=== PATIENT | male | born 1940 | race African-American/Black ===

== ENCOUNTER 2017-03-03 17:47 | Inpatient (IN) | payer MEDICARE, OTHER ==
[~2017-03-03] VITALS: Ht 175.3 cm; Wt 77.1 kg
[~2017-03-03 17:47] MED LIST: AMBIEN10 MG PO; ASPIRIN81 MG ORAL; COREG CR20 MG *; DIGOXIN250 MCG PO; DOCUSATE SODIU100 MG PO; DOXYCYCLINE MO100 MG ORAL; FLONASE1 SPRAYS NASAL; LISINOPRIL20 MG PO; MAG-OX 400400 MG ORAL; MEXITIL150 MG GT; NEXIUM40 MG PO; PACERONE200 MG ORAL; POTASSIUM IV; PROPAFENONE HC225 M1 PO; WARFARIN SODIUM3 MG PO; XANAX0.25 MG ORAL
[2017-03-03] MEDS ORDERED: BUMETANIDE0.5 MG ORAL (18:13)
[2017-03-03] MEDS ORDERED: ATORVASTATIN CA10 MG ORAL (18:13)
[2017-03-03 18:19] VITALS: BP 104/77
[2017-03-03 18:36] LABS: BASOPHILS % (AUTO) 1.5 % (0.0-2.0); EOSINOPHILS % (AUTO) 0.7 % (0.0-3.0); LYMPHOCYTES % (AUTO) 18.2 % (20.0-45.0); MEAN CORPUSCULAR HGB CONC 34.2 G/DL (32.0-36.0); MEAN CORPUSCULAR VOLUME 102 FL (80-99); MONOCYTES % (AUTO) 8.4 % (1.0-10.0); NEUTROPHILS % (AUTO) 71.2 % (45.0-75.0); PLATELET COUNT 122 K/UL (150-450); RED BLOOD COUNT 3.79 M/UL (4.70-6.10); RED CELL DISTRIBUTION WIDTH 12.5 % (11.6-14.8); WHITE BLOOD COUNT 4.2 K/UL (4.8-10.8)
[2017-03-03 19:08] LABS: ALANINE AMINOTRANSFERASE 18 U/L (3-41); ALBUMIN/GLOBULIN RATIO 1.2 (1.0-2.7); ANION GAP 15 (5-15); ASPARTATE AMINO TRANSFERASE 25 U/L (5-40); CALCIUM 9.6 mg/dL (8.6-10.2); CARBON DIOXIDE 23 mEQ/L (20-30); CHLORIDE 99 mEQ/L (98-107); CREATININE 1.6 mg/dL (0.7-1.2); HEMOLYSIS 63; SODIUM 137 mEQ/L (135-145); TOTAL PROTEIN 6.4 g/dL (6.6-8.7); TROPONIN I < 0.30 ng/mL (<=0.30)
--- NOTE | 2017-03-03 19:08 | Emergency Room Report ---
History of Present Illness General Chief Complaint: General Complaint Source: Patient, Medical Record, EMS Present Illness HPI 76YOM BIBEMS for "not feeling well all weekend." Denies fever/chills, cough. States cant catch breath. On 2L O2 at home. EMS states Atrial fib with RVR to 160 on scene Patient not sure if known Atrial Fib but on Coreg and AC. EMR states Atrial fib in 2012 here. Denies abd pain, nausea/vomiting Allergies: Coded Allergies: DIGOXIN (Unverified Allergy, Intermediate, KIDNEY DAMAGE, 09/14/14) CODEINE (Verified Allergy, Unknown, ITCHING, 05/15/12) Patient History Past Medical History: AFib Past Surgical History: pacemaker Pertinent Family History: unable to obtain Social History: Denies: smoking, alcohol use, drug use Immunizations: UTD Reviewed Nursing Documentation: PMH: Agreed, PSxH: Agreed Nursing Documentation-PMH Past Medical History: No History, Except For Hx Cardiac Problems: Yes - SC, ARRYTHMIA Hx Hypertension: Yes Hx Pacemaker: Yes - RT Hx Asthma: No Hx COPD: No Hx Diabetes: No Hx Cancer: No Hx Gastrointestinal Problems: Yes - HERNIA Hx Dialysis: No - RENAL INSUFFIENCY Hx Neurological Problems: No Hx Cerebrovascular Accident: Yes - LEFT SIDE Hx Seizures: No Review of Systems All Other Systems: negative except mentioned in HPI Physical Exam Vital Signs Date Time Temp Pulse Resp B/P (MAP) Pulse Ox O2 Delivery O2 Flow Rate FiO2 03/03/17 17:40 142 20 104/77 96 Room Air 03/03/17 18:19 98.7 2.0 Sp02 EP Interpretation: reviewed, normal General Appearance: normal inspection, well appearing, no apparent distress, alert, GCS 15, non-toxic, cachetic, thin Head: normocephalic, atraumatic Eyes: bilateral eye PERRL, bilateral eye EOMI ENT: normal ENT inspection, hearing grossly normal, normal voice Neck: normal inspection, full range of motion, supple, no bony tend Respiratory: normal inspection, lungs clear, normal breath sounds, no respiratory distress, no retraction, no wheezing Cardiovascular #1: no edema, tachycardia, irregularly irregular Gastrointestinal: normal inspection, normal bowel sounds, non tender, soft, no guarding, no hernia Genitourinary: no CVA tenderness Musculoskeletal: normal inspection, back normal, normal range of motion, Ashlee' s Sign negative Neurologic: normal inspection, alert, oriented x3, responsive, logging specialist III-XII nml as tested, motor strength/tone normal, speech normal Psychiatric: normal inspection, judgement/insight normal, mood/affect normal Skin: normal inspection, normal color, no rash Lymphatic: normal inspection Medical Decision Making Medicare Attestation I Radha Fleming MD hereby attest that the medical record entry for date of service, 03/03/17 accurately reflects signatures/notations that I made in my capacity as MD when I treated/diagnosed the above listed Medicare beneficiary. I attest that this information is true, accurate and complete to the best of my knowledge. I understand that any falsification, omission, or concealment of material fact may subject me to administrative, civil, or criminal liability. This patient warrants hospital admission for extreme of age and has a condition that cannot be treated as outpatient. Diagnostic Impression: Primary Impression: SOB (shortness of breath) Additional Impressions: Atrial fibrillation Qualified Codes: I48.2 - Chronic atrial fibrillation JENNIFER (acute kidney injury) ER Course SOB Known atrial fib Here HR 120. No ED intervention. BP stable. O2 sat 100% H&H stable. No leuks. Troponin 0. Mild JENNIFER. No known CKD. Gentle hydration given in ED On AC already so ASA not given Admitted for rule out ACS tele bed at 839pm to Dr Melgar Of note, registration acknowledged admission request at 630pm. EKG Diagnostic Results Rate: tachycardiac Rhythm: other - Afib ST Segments: no acute changes ASA given to the pt in ED: No Rhythm Strip Diag. Results EP Interpretation: yes Rate: 123 Rhythm: NSR, other - Multiple PVCs Chest X-Ray Diagnostic Results Chest X-Ray Diagnostic Results : Chest X-Ray Ordered: Yes # of Views/Limited/Complete: 1 View Indication: Shortness of Breath EP Interpretation: Yes Interpretation: no consolidation, no effusion, no pneumothorax, other - Cardiomegaly, pacemaker Interpreting ER Provider: Dr Radha Fleming MD Last Vital Signs Date Time Temp Pulse Resp B/P (MAP) Pulse Ox O2 Delivery O2 Flow Rate FiO2 03/03/17 18:19 98.7 135 20 104/77 96 Nasal Cannula 2.0 Status: improved Disposition: ADMITTED INPATIENT Condition: Serious RADHA FLEMING M.D. Mar 03, 2017 19:08
[2017-03-03 19:15] VITALS: BP_SYST 90; BP_SYST 95; BP_DIAS 59; BP_DIAS 69
[2017-03-03 19:18] LABS: CKMB 3.1 ng/mL (< 6.7)
[2017-03-03 19:28] LABS: BILIRUBIN,DIRECT 0.3 mg/dL (0.1-0.3)
[2017-03-03 20:15] VITALS: BP 91/64
[2017-03-03 21:15] VITALS: BP 102/74
[2017-03-03] MEDS ORDERED: Ketorolac 30mg Inj IV PRN (21:30)
[2017-03-03] MEDS ORDERED: Enalaprilat 2.5mg/2ml Inj IV PRN (21:30)
[2017-03-03] MEDS ORDERED: DuoNeb 0.5-3(2.5)mg/3ml neb HHN PRN (21:30)
[2017-03-03] MEDS ORDERED: Miralax 17gm pkt ORAL PRN (21:30)
[2017-03-03] MEDS ORDERED: Nitroglycerin Subl 0.4mg tab (Bottle Of 25) SL PRN (21:30)
[2017-03-04] VITALS: BP 102/63
[2017-03-04] MEDS: Diltiazem 25mg/5ml IV PRN ×2 (00:10→07:50)
[2017-03-04 04:00] VITALS: BP 135/90
[2017-03-04 06:46] LABS: BASOPHILS % (AUTO) 1.5 % (0.0-2.0); EOSINOPHILS % (AUTO) 0.4 % (0.0-3.0); MEAN CORPUSCULAR HEMOGLOBIN 34.6 PG (27.0-31.0); MEAN CORPUSCULAR HGB CONC 33.1 G/DL (32.0-36.0); MEAN CORPUSCULAR VOLUME 104 FL (80-99); MEAN PLATELET VOLUME 11.5 FL (6.5-10.1); MONOCYTES % (AUTO) 10.8 % (1.0-10.0); NEUTROPHILS % (AUTO) 67.4 % (45.0-75.0); PLATELET COUNT 119 K/UL (150-450); RED BLOOD COUNT 3.48 M/UL (4.70-6.10); RED CELL DISTRIBUTION WIDTH 12.7 % (11.6-14.8); WHITE BLOOD COUNT 4.3 K/UL (4.8-10.8)
[2017-03-04 06:57] LABS: INR 4.6 (0.9-1.1); PROTHROMBIN TIME 48.8 SEC (9.30-11.50)
[2017-03-04 06:59] LABS: CHOLESTEROL/HDL RATIO 2.8 (3.3-4.4); CRP QUANT 0.4 mg/dL (< 0.5)
[2017-03-04 07:03] LABS: THYROID STIMULATING HORMONE 0.317 uIU/mL (0.300-4.500)
[2017-03-04 07:49] LABS: TROPONIN I < 0.30 ng/mL (<=0.30)
[2017-03-04 08:14] VITALS: BP 116/70
[2017-03-04] MEDS ORDERED: Heparin 5000 units/ml inj SUBQ SCH (09:00)
[2017-03-04] MEDS: Aspirin Baby 81mg ORAL SCH (09:33)
[2017-03-04] MEDS: Amiodarone 200mg tab ORAL SCH ×2 (09:33→17:36)
[2017-03-04] MEDS: ALPRAZolam 0.25mg tab ORAL SCH (09:34)
--- NOTE | 2017-03-04 10:18 | Cardiology Progress Note ---
Assessment/Plan Assessment/Plan [id number] acute on chronic chf afib paroxysmal with hs of ablation tachy sever mr abdiaziz priro mitraclips pulm htn TR hyperkalemia unalbe to take acei / arb / aldactone dig intolerance s/p icd need hr control resume coreg / mexiletine (unusual combination but followed by ep) dc ivf diuretics no acei / no arb panic attack may have been onset of afib rvr his afib is peristent may need ep eval not sure why he cannot recieve amiod instead of mexiletine Objective Last 24 Hour Vital Signs Date Time Temp Pulse Resp B/P (MAP) Pulse Ox O2 Delivery O2 Flow Rate FiO2 03/04/17 08:14 97.1 122 20 116/70 99 Nasal Cannula 2.0 03/04/17 07:50 130 116/70 03/04/17 04:00 97.7 75 21 135/90 96 Nasal Cannula 2.0 03/04/17 04:00 105 03/04/17 00:10 130 102/63 03/04/17 00:00 97.0 114 18 102/63 99 Nasal Cannula 2.0 03/03/17 23:19 122 03/03/17 22:13 98.7 120 18 102/74 99 Nasal Cannula 2.0 03/03/17 21:15 120 18 102/74 99 Nasal Cannula 2.0 03/03/17 20:15 129 20 91/64 99 Nasal Cannula 2.0 03/03/17 19:15 111 14 95/59 100 Nasal Cannula 2.0 03/03/17 19:15 112 16 90/69 100 Nasal Cannula 2.0 03/03/17 18:19 98.7 135 20 104/77 96 Nasal Cannula 2.0 03/03/17 17:40 142 20 104/77 96 Room Air Laboratory Tests Test 03/03/17 18:10 03/04/17 06:05 White Blood Count 4.2 K/UL (4.8-10.8) L 4.3 K/UL (4.8-10.8) L Red Blood Count 3.79 M/UL (4.70-6.10) L 3.48 M/UL (4.70-6.10) L Hemoglobin 13.3 G/DL (14.2-18.0) L 12.0 G/DL (14.2-18.0) L Hematocrit 38.7 % (42.0-52.0) L 36.3 % (42.0-52.0) L Mean Corpuscular Volume 102 FL (80-99) H 104 FL (80-99) H Mean Corpuscular Hemoglobin 35.0 PG (27.0-31.0) H 34.6 PG (27.0-31.0) H Mean Corpuscular Hemoglobin Concent 34.2 G/DL (32.0-36.0) 33.1 G/DL (32.0-36.0) Red Cell Distribution Width 12.5 % (11.6-14.8) 12.7 % (11.6-14.8) Platelet Count 122 K/UL (150-450) L 119 K/UL (150-450) L Mean Platelet Volume 11.0 FL (6.5-10.1) H 11.5 FL (6.5-10.1) H Neutrophils (%) (Auto) 71.2 % (45.0-75.0) 67.4 % (45.0-75.0) Lymphocytes (%) (Auto) 18.2 % (20.0-45.0) L 20.0 % (20.0-45.0) Monocytes (%) (Auto) 8.4 % (1.0-10.0) 10.8 % (1.0-10.0) H Eosinophils (%) (Auto) 0.7 % (0.0-3.0) 0.4 % (0.0-3.0) Basophils (%) (Auto) 1.5 % (0.0-2.0) 1.5 % (0.0-2.0) Sodium Level 137 mEQ/L (135-145) Potassium Level 4.0 mEQ/L (3.4-4.9) Chloride Level 99 mEQ/L (98-107) Carbon Dioxide Level 23 mEQ/L (20-30) Anion Gap 15 (5-15) Blood Urea Nitrogen 20 mg/dL (7-23) Creatinine 1.6 mg/dL (0.7-1.2) H Estimat Glomerular Filtration Rate mL/min (>60) Glucose Level 108 mg/dL (74-106) H Calcium Level 9.6 mg/dL (8.6-10.2) Total Bilirubin 1.6 mg/dL (0.0-1.2) H Direct Bilirubin 0.3 mg/dL (0.1-0.3) Aspartate Amino Transf (AST/SGOT) 25 U/L (5-40) Alanine Aminotransferase (ALT/SGPT) 18 U/L (3-41) Alkaline Phosphatase 85 U/L (40-129) Total Creatine Kinase 125 U/L (38-174) Creatine Kinase MB 3.1 ng/mL (< 6.7) Creatine Kinase MB Relative Index 2.4 Troponin I < 0.30 ng/mL (<=0.30) < 0.30 ng/mL (<=0.30) Total Protein 6.4 g/dL (6.6-8.7) L Albumin 3.6 g/dL (3.5-5.2) Globulin 2.8 g/dL Albumin/Globulin Ratio 1.2 (1.0-2.7) Prothrombin Time 48.8 SEC (9.30-11.50) H Prothromb Time International Ratio 4.6 (0.9-1.1) H Activated Partial Thromboplast Time 39 SEC (23-33) H Magnesium Level 1.4 mg/dL (1.7-2.5) L C-Reactive Protein, Quantitative 0.4 mg/dL (< 0.5) Triglycerides Level 76 mg/dL (< 150) Cholesterol Level 119 mg/dL (< 200) LDL Cholesterol 61 mg/dL (60-99) HDL Cholesterol 43 mg/dL (> 60) Cholesterol/HDL Ratio 2.8 (3.3-4.4) L Thyroid Stimulating Hormone (TSH) 0.317 uIU/mL (0.300-4.500) MELANIE RIVAS Mar 04, 2017 10:18
[2017-03-04 11:36] VITALS: BP 98/69
--- NOTE | 2017-03-04 11:36 | Diagnostic Imaging Report ---
Indication: Dyspnea Comparison: 04/09/2007 A single view chest radiograph was obtained. Findings: No definite infiltrate or pulmonary vascular congestion identified. There is a pacemaker on the right. The heart is enlarged. The aorta is mildly enlarged consistent with atherosclerotic vascular disease. The bones are osteopenic. Impression: No acute disease
[2017-03-04] MEDS ORDERED: Bumetanide 2.5mg/10ml Inj IVP ONE (12:00)
--- NOTE | 2017-03-04 13:27 | Cardiology Report ---
APPROVED REPORT EXAM: Two-dimensional and M-mode echocardiogram with Doppler and color Doppler. INDICATION LV function M-Mode DIMENSIONS IVSd0.6 (0.7-1.1cm)Left Atrium (MM)4.3 (1.6-4.0cm) LVDd6.9 (3.5-5.6cm)Aortic Root4.2 (2.0-3.7cm) PWd1.4 (0.7-1.1cm)Aortic Cusp Exc.2.1 (1.5-2.0cm) LVDs6.4 (2.5-4.0cm) PWs1.3 cm Left ventricular enlargement. Global left ventricular hypokinesis. Apical akinesis and septal dyskinesis with septal thinning. Increased apical echoes noted on some views Left ventricular ejection fraction estimated to be 10-15 %. No evidence of left ventricular hypertrophy. Anterior Echo-free space, may be due to pericardial fat or effusion. Moderate bi-atrial enlargement. Right ventricular chamber size is within normal limits. Focal aortic valve sclerosis with adequate cusp excursion. Thickened mitral valve leaflets with normal excursion. Mitral annulus and aortic root calcification. Normal pulmonic valve structure. Normal tricuspid valve structure. IVC dilated at 3.0 cm without physiologic collapse suggestive of RA pressure at least 20 mmHg. Pacemaker wire present in the right side chambers. A color flow and spectral Doppler study was performed and revealed: Moderate aortic regurgitation. Moderate to severe mitral regurgitation. Can not determine left ventricular diastolic function by mitral diastolic velocities due to atrial fibrillation. Moderate to severe tricuspid regurgitation. Tricuspid systolic velocities suggests peak right ventricular systolic pressure of 69 mmHg, consistent with severe pulmonary hypertension. Pulmonic regurgitation present.
--- NOTE | 2017-03-04 14:46 | History and Physical ---
History of Present Illness General Date patient seen: Mar 04, 2017 Reason for Hospitalization: General Complaint Present Illness HPI 76 year old male with hx of endstage heart disease, pace maker, on Home O2 brought in by paramedics with CC of increasing Dyspnea for one week that became unbearable. Pt was diagnosed to have pulmonary edema and admitted to telemetry for further evaluation. Allergies: Coded Allergies: DIGOXIN (Unverified Allergy, Intermediate, KIDNEY DAMAGE, 09/14/14) CODEINE (Verified Allergy, Unknown, ITCHING, 05/15/12) Medication History Scheduled Alprazolam* (Xanax*), 0.25 MG ORAL DAILY, (Reported) Amiodarone Hcl* (Pacerone*), 200 MG ORAL BID, (Reported) Aspirin* (Aspirin*), 81 MG ORAL DAILY, (Reported) Atorvastatin Calcium* (Lipitor*), Unknown Dose ORAL BEDTIME, (Reported) Bumetanide* (Bumetanide*), Unknown Dose ORAL DAILY, (Reported) Carvedilol (Coreg Cr), 20 MG * DAILY, (Reported) Doxycycline Monohydrate* (Doxycycline Monohydrate*), 100 MG ORAL Q12H Esomeprazole Magnesium (Nexium), 40 MG PO DAILY, (Reported) Fluticasone Propionate (Fluticasone Propionate), 1 SPRAY NASAL DAILY, (Reported) Magnesium Oxide (Magnesium Oxide), 400 MG ORAL BID, (Reported) Mexiletine HCl (Mexiletine HCl), 150 MG GT TID, (Reported) Propafenone Hcl (Propafenone Hcl), 225 MG PO BID, (Reported) Zolpidem Tartrate* (Ambien*), 10 MG PO HS, (Reported) Miscellaneous Medications Warfarin Sod* (Warfarin Sod*), 3 MG PO, (Reported) Patient History Healthcare decision maker Resuscitation status Full Code Advanced Directive on File Past Medical/Surgical History Past Medical/Surgical History: (1) Pacemaker (2) Atrial fibrillation Review of Systems All Other Systems: negative except mentioned in HPI Physical Exam Lines, tubes and drains: peripheral HEENT: normocephalic, atraumatic Respiratory/Chest: rhonchi - left, rhonchi - right Cardiovascular/Chest: tachycardia Abdomen: normal bowel sounds, non tender, soft Extremities: normal range of motion, non-tender, normal capillary refill Skin Exam: normal pigmentation Last 24 Hour Vital Signs Date Time Temp Pulse Resp B/P (MAP) Pulse Ox O2 Delivery O2 Flow Rate FiO2 03/04/17 12:00 97 03/04/17 11:36 96.6 84 20 98/69 95 Room Air 03/04/17 08:14 97.1 122 20 116/70 99 Nasal Cannula 2.0 03/04/17 08:11 96 Nasal Cannula 2.0 28 03/04/17 08:11 Nasal Cannula 2.0 03/04/17 08:00 125 03/04/17 07:50 130 116/70 03/04/17 04:00 97.7 75 21 135/90 96 Nasal Cannula 2.0 03/04/17 04:00 105 03/04/17 00:10 130 102/63 03/04/17 00:00 97.0 114 18 102/63 99 Nasal Cannula 2.0 03/03/17 23:19 122 03/03/17 22:13 98.7 120 18 102/74 99 Nasal Cannula 2.0 03/03/17 21:15 120 18 102/74 99 Nasal Cannula 2.0 03/03/17 20:15 129 20 91/64 99 Nasal Cannula 2.0 03/03/17 19:15 111 14 95/59 100 Nasal Cannula 2.0 03/03/17 19:15 112 16 90/69 100 Nasal Cannula 2.0 03/03/17 18:19 98.7 135 20 104/77 96 Nasal Cannula 2.0 03/03/17 17:40 142 20 104/77 96 Room Air Intake and Output 03/04/17 03/05/17 19:00 07:00 Intake Total 120 ml Balance 120 ml Intake Oral 120 ml Laboratory Tests Test 03/03/17 18:10 03/04/17 06:05 White Blood Count 4.2 K/UL (4.8-10.8) L 4.3 K/UL (4.8-10.8) L Red Blood Count 3.79 M/UL (4.70-6.10) L 3.48 M/UL (4.70-6.10) L Hemoglobin 13.3 G/DL (14.2-18.0) L 12.0 G/DL (14.2-18.0) L Hematocrit 38.7 % (42.0-52.0) L 36.3 % (42.0-52.0) L Mean Corpuscular Volume 102 FL (80-99) H 104 FL (80-99) H Mean Corpuscular Hemoglobin 35.0 PG (27.0-31.0) H 34.6 PG (27.0-31.0) H Mean Corpuscular Hemoglobin Concent 34.2 G/DL (32.0-36.0) 33.1 G/DL (32.0-36.0) Red Cell Distribution Width 12.5 % (11.6-14.8) 12.7 % (11.6-14.8) Platelet Count 122 K/UL (150-450) L 119 K/UL (150-450) L Mean Platelet Volume 11.0 FL (6.5-10.1) H 11.5 FL (6.5-10.1) H Neutrophils (%) (Auto) 71.2 % (45.0-75.0) 67.4 % (45.0-75.0) Lymphocytes (%) (Auto) 18.2 % (20.0-45.0) L 20.0 % (20.0-45.0) Monocytes (%) (Auto) 8.4 % (1.0-10.0) 10.8 % (1.0-10.0) H Eosinophils (%) (Auto) 0.7 % (0.0-3.0) 0.4 % (0.0-3.0) Basophils (%) (Auto) 1.5 % (0.0-2.0) 1.5 % (0.0-2.0) Sodium Level 137 mEQ/L (135-145) Potassium Level 4.0 mEQ/L (3.4-4.9) Chloride Level 99 mEQ/L (98-107) Carbon Dioxide Level 23 mEQ/L (20-30) Anion Gap 15 (5-15) Blood Urea Nitrogen 20 mg/dL (7-23) Creatinine 1.6 mg/dL (0.7-1.2) H Estimat Glomerular Filtration Rate mL/min (>60) Glucose Level 108 mg/dL (74-106) H Calcium Level 9.6 mg/dL (8.6-10.2) Total Bilirubin 1.6 mg/dL (0.0-1.2) H Direct Bilirubin 0.3 mg/dL (0.1-0.3) Aspartate Amino Transf (AST/SGOT) 25 U/L (5-40) Alanine Aminotransferase (ALT/SGPT) 18 U/L (3-41) Alkaline Phosphatase 85 U/L (40-129) Total Creatine Kinase 125 U/L (38-174) Creatine Kinase MB 3.1 ng/mL (< 6.7) Creatine Kinase MB Relative Index 2.4 Troponin I < 0.30 ng/mL (<=0.30) < 0.30 ng/mL (<=0.30) Total Protein 6.4 g/dL (6.6-8.7) L Albumin 3.6 g/dL (3.5-5.2) Globulin 2.8 g/dL Albumin/Globulin Ratio 1.2 (1.0-2.7) Prothrombin Time 48.8 SEC (9.30-11.50) H Prothromb Time International Ratio 4.6 (0.9-1.1) H Activated Partial Thromboplast Time 39 SEC (23-33) H Magnesium Level 1.4 mg/dL (1.7-2.5) L C-Reactive Protein, Quantitative 0.4 mg/dL (< 0.5) Triglycerides Level 76 mg/dL (< 150) Cholesterol Level 119 mg/dL (< 200) LDL Cholesterol 61 mg/dL (60-99) HDL Cholesterol 43 mg/dL (> 60) Cholesterol/HDL Ratio 2.8 (3.3-4.4) L Thyroid Stimulating Hormone (TSH) 0.317 uIU/mL (0.300-4.500) Height (Feet): 5 Height (Inches): 9.00 Weight (Pounds): 141 Medications Current Medications Medications (Trade) Dose Ordered Sig/Thong Route PRN Reason Start Time Stop Time Status Last Admin Dose Admin Acetaminophen (Tylenol) 650 mg Q4H PRN ORAL FEVER 03/03/17 21:30 04/02/17 21:29 Alprazolam (Xanax) 0.25 mg DAILY ORAL 03/04/17 09:00 03/11/17 08:59 03/04/17 09:34 Amiodarone HCl (Cordarone) 200 mg BID ORAL 03/04/17 09:00 04/03/17 08:59 03/04/17 09:33 Aspirin (ASA) 162 mg DAILY ORAL 03/04/17 09:00 04/03/17 08:59 03/04/17 09:33 Atorvastatin Calcium (Lipitor) 20 mg BEDTIME ORAL 03/04/17 21:00 04/03/17 20:59 Diltiazem HCl (Cardizem) 10 mg Q1H PRN IV heart rate more than 120 03/03/17 21:30 04/02/17 21:29 03/04/17 07:50 Nitroglycerin (Ntg) 0.4 mg Q5M PRN SL Prn Chest Pain 03/03/17 21:30 04/02/17 21:29 Ondansetron HCl (Zofran) 4 mg Q6H PRN IVP Nausea & Vomiting 03/03/17 21:30 04/02/17 21:29 Polyethylene Glycol (Miralax) 17 gm DAILYPRN PRN ORAL Constipation 03/03/17 21:30 04/02/17 21:29 Temazepam (Restoril) 15 mg HSPRN PRN ORAL Insomnia 03/03/17 21:30 03/10/17 21:29 03/04/17 02:24 Warfarin Sodium (Coumadin per pharmacy) 1 ea DAILY PRN MISC PER RX PROTOCOL 03/03/17 22:15 04/02/17 22:14 Assessment/Plan Problem List: (1) Acute respiratory failure ICD Codes: J96.00 - Acute respiratory failure, unspecified whether with hypoxia or hypercapnia SNOMED: 53745109 (2) Pulmonary edema ICD Codes: J81.1 - Chronic pulmonary edema SNOMED: 34065578 (3) End-stage systolic heart failure ICD Codes: I50.20 - Unspecified systolic (congestive) heart failure SNOMED: 261871231 (4) Atrial fibrillation ICD Codes: I48.91 - Unspecified atrial fibrillation SNOMED: 22376023 Qualifiers: Qualified Codes: I48.2 - Chronic atrial fibrillation (5) Pacemaker ICD Codes: Z95.0 - Presence of cardiac pacemaker SNOMED: 238530707, 738103102 Assessment/Plan diuretics cardiology evaluation check intake and output serial ekg troponin echocardiogram optimize cardiac meds. IDALIA WALLS Mar 04, 2017 14:46
[2017-03-04 14:47] LABS: URIC ACID 7.3 mg/dL (3.0-7.5)
[2017-03-04 15:41] VITALS: BP 102/64
--- NOTE | 2017-03-04 15:48 | Diagnostic Imaging Report ---
Indication:Elevated Bun and Creatinine. Technique: Grayscale and duplex Doppler imaging of the kidneys performed. Comparison: None Findings: There is a cyst the left kidney midpole 3.2 cm in size. There is no hydronephrosis. Other smaller cysts are noted bilaterally. The IVC is unremarkable. The prostate is prominent having 47 cc volume. Thickening of the bladder wall demonstrated. There is no hydronephrosis seen. Renal echogenicity is within normal limits. Both kidneys measure slightly above 10 cm in length. Impression: Negative ultrasound of the kidneys. Few cysts noted. Prostate hypertrophy. Bladder wall thickening probably due to chronic bladder outlet impediment. Please correlate clinically.
[2017-03-04 20:00] VITALS: BP 96/77
[2017-03-04] MEDS: Haloperidol 5mg/ml Inj IM PRN (20:16)
[2017-03-04] MEDS: Atorvastatin 20mg tab ORAL SCH (21:05)
[2017-03-05] VITALS (7 sets, daily range): BP systolic 95–110; BP diastolic 63–76
[2017-03-05] MEDS: Haloperidol 5mg/ml Inj IM PRN ×2 (01:15→11:16)
[2017-03-05] MEDS: Amiodarone 200mg tab ORAL SCH ×2 (08:26→22:05)
[2017-03-05] MEDS: ALPRAZolam 0.25mg tab ORAL SCH (08:26)
[2017-03-05] MEDS: Aspirin Baby 81mg ORAL SCH (08:26)
[2017-03-05 08:40] LABS: ANION GAP 10 (5-15); CALCIUM 9.4 mg/dL (8.6-10.2); CARBON DIOXIDE 27 mEQ/L (20-30); CHLORIDE 101 mEQ/L (98-107); CREATININE 1.4 mg/dL (0.7-1.2); HEMOLYSIS 18; MAGNESIUM 1.5 mg/dL (1.7-2.5); POTASSIUM 3.8 mEQ/L (3.4-4.9); SODIUM 138 mEQ/L (135-145)
[2017-03-05 08:44] LABS: INR 3.7 (0.9-1.1); PROTHROMBIN TIME 39.1 SEC (9.30-11.50)
[2017-03-05 08:46] LABS: TROPONIN I 0.33 ng/mL (<=0.30)
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
[2017-03-05] MEDS ORDERED: Bumetanide 2.5mg/10ml Inj IVP ONE (10:00)
[2017-03-05] MEDS ORDERED: DuoNeb 0.5-3(2.5)mg/3ml neb HHN PRN (12:00)
--- NOTE | 2017-03-05 12:44 | Pulmonology Progress Note ---
Assessment/Plan Problems: (1) Acute respiratory failure (2) Pulmonary edema (3) End-stage systolic heart failure (4) Atrial fibrillation (5) EF 10% (6) Severe protein-calorie malnutrition Assessment/Plan still tachycardic psych evaluation for anxiety optimize cardiac meds Subjective ROS Limited/Unobtainable: No Interval Events: had panic attack Allergies: Coded Allergies: DIGOXIN (Unverified Allergy, Intermediate, KIDNEY DAMAGE, 09/14/14) CODEINE (Verified Allergy, Unknown, ITCHING, 05/15/12) Objective Last 24 Hour Vital Signs Date Time Temp Pulse Resp B/P (MAP) Pulse Ox O2 Delivery O2 Flow Rate FiO2 03/05/17 12:27 62 22 97 Nasal Cannula 3.0 32 03/05/17 12:23 98 22 Nasal Cannula 3.0 32 03/05/17 10:44 Nasal Cannula 2.0 03/05/17 10:43 99 Nasal Cannula 2.0 03/05/17 08:17 97.0 120 20 100/63 95 Nasal Cannula 2.0 03/05/17 08:00 91 03/05/17 04:00 96.9 65 20 100/68 97 Nasal Cannula 3.0 03/05/17 04:00 103 03/05/17 00:00 99 03/05/17 00:00 97.0 61 20 95/76 97 Nasal Cannula 3.0 03/04/17 20:00 102 03/04/17 20:00 96.9 60 22 96/77 100 Nasal Cannula 3.0 03/04/17 19:30 Nasal Cannula 2.0 28 03/04/17 19:30 97 Nasal Cannula 2.0 28 03/04/17 16:00 119 03/04/17 15:41 97.3 99 20 102/64 98 Nasal Cannula 2.0 Intake and Output 03/05/17 03/06/17 19:00 07:00 Intake Total 120 ml Output Total 200 ml Balance -80 ml Intake Oral 120 ml Output Urine Total 200 ml # Voids 1 General Appearance: cachetic HEENT: normocephalic, atraumatic Respiratory/Chest: chest wall non-tender, rhonchi Cardiovascular: normal peripheral pulses, normal rate Abdomen: normal bowel sounds, soft, non tender Extremities: no cyanosis, no clubbing Laboratory Tests 03/04/17 14:45: Urine Eosinophils None seen, Urine Random Sodium 61, Urine Potassium Timed 38 03/05/17 07:55: Prothrombin Time 39.1H, Prothromb Time International Ratio 3.7H, Sodium Level 138, Potassium Level 3.8, Chloride Level 101, Carbon Dioxide Level 27, Anion Gap 10, Blood Urea Nitrogen 19, Creatinine 1.4H, Estimat Glomerular Filtration Rate , Glucose Level 91, Calcium Level 9.4, Magnesium Level 1.5L, Troponin I 0.33*H, Pro-B-Type Natriuretic Peptide [id number] Current Medications Medications (Trade) Dose Ordered Sig/Thong Route PRN Reason Start Time Stop Time Status Last Admin Dose Admin Acetaminophen (Tylenol) 650 mg Q4H PRN ORAL FEVER 03/03/17 21:30 04/02/17 21:29 Albuterol/ Ipratropium (DuoNeb 0.5-3(2.5)mg/3ml) 3 ml Q4HRT PRN HHN Shortness of Breath 03/05/17 12:00 03/10/17 11:59 03/05/17 12:20 Alprazolam (Xanax) 0.25 mg DAILY ORAL 03/04/17 09:00 03/11/17 08:59 03/05/17 08:26 Amiodarone HCl (Cordarone) 400 mg EVERY 12 HOURS ORAL 03/05/17 21:00 04/04/17 20:59 Aspirin (ASA) 162 mg DAILY ORAL 03/04/17 09:00 04/03/17 08:59 03/05/17 08:26 Atorvastatin Calcium (Lipitor) 20 mg BEDTIME ORAL 03/04/17 21:00 04/03/17 20:59 03/04/17 21:05 Diltiazem HCl (Cardizem) 10 mg Q1H PRN IV heart rate more than 120 03/03/17 21:30 04/02/17 21:29 03/04/17 07:50 Haloperidol Lactate (Haldol) 5 mg Q4H PRN IM Agitation 03/04/17 19:45 04/03/17 19:44 03/05/17 11:16 Magnesium Sulfate 100 ml @ 100 mls/hr Q1H IVPB 03/05/17 10:00 03/05/17 12:59 03/05/17 11:43 Nitroglycerin (Ntg) 0.4 mg Q5M PRN SL Prn Chest Pain 03/03/17 21:30 04/02/17 21:29 Ondansetron HCl (Zofran) 4 mg Q6H PRN IVP Nausea & Vomiting 03/03/17 21:30 04/02/17 21:29 Polyethylene Glycol (Miralax) 17 gm DAILYPRN PRN ORAL Constipation 03/03/17 21:30 04/02/17 21:29 Temazepam (Restoril) 15 mg HSPRN PRN ORAL Insomnia 03/03/17 21:30 03/10/17 21:29 03/04/17 21:06 Warfarin Sodium (Coumadin per pharmacy) 1 ea DAILY PRN MISC PER RX PROTOCOL 03/03/17 22:15 04/02/17 22:14 IDALIA WALLS Mar 05, 2017 12:44
--- NOTE | 2017-03-05 19:32 | Cardiology Progress Note ---
Assessment/Plan Assessment/Plan 1. Paroxysmal episodes of atrial fibrillation now with rapid ventricular response. 2. Congestive heart failure, acute on chronic in nature. 3. Severe mitral regurgitation, status post two prior MitraClips with remnants of significant regurgitation. 4. Pulmonary hypertension. 5. Tricuspid regurgitation. 6. History of epicardial pacemaker implantation. 7. Prior history of atrial fibrillation, ablation by Dr. jaramillo 8. "panic attackes" ? chf and afib related d/w dr lugo yest hsitory reviwed pt endstage cm / chf we decided to dc mexiletine adn use amiod instead today converted back to sinus amiod load will be contienue bop is better will need icd interrogation need mroe diuretic for now labs ntoed Subjective Cardiovascular: Denies: chest pain, lightheadedness, palpitations Respiratory: Reports: shortness of breath, SOB with excertion, SOB at rest Gastrointestinal/Abdominal: Denies: abdominal pain Genitourinary: Denies: burning Subjective felt like panic Objective Last 24 Hour Vital Signs Date Time Temp Pulse Resp B/P (MAP) Pulse Ox O2 Delivery O2 Flow Rate FiO2 03/05/17 16:00 97.0 68 19 110/69 99 Simple Mask 2.0 03/05/17 16:00 119 03/05/17 12:27 62 22 97 Nasal Cannula 3.0 32 03/05/17 12:23 98 22 Nasal Cannula 3.0 32 03/05/17 12:00 119 03/05/17 12:00 96.9 120 22 108/68 98 Nasal Cannula 2.0 03/05/17 10:44 Nasal Cannula 2.0 03/05/17 10:43 99 Nasal Cannula 2.0 03/05/17 08:17 97.0 120 20 100/63 95 Nasal Cannula 2.0 03/05/17 08:00 91 03/05/17 04:00 96.9 65 20 100/68 97 Nasal Cannula 3.0 03/05/17 04:00 103 03/05/17 00:00 99 03/05/17 00:00 97.0 61 20 95/76 97 Nasal Cannula 3.0 03/04/17 20:00 102 03/04/17 20:00 96.9 60 22 96/77 100 Nasal Cannula 3.0 03/04/17 19:30 Nasal Cannula 2.0 28 03/04/17 19:30 97 Nasal Cannula 2.0 28 General Appearance: mild distress Cardiovascular: normal rate - ectopies Respiratory/Chest: crackles/rales Abdomen: normal bowel sounds, non tender, soft Extremities: no swelling Intake and Output 03/05/17 03/06/17 19:00 07:00 Intake Total 440 ml Output Total 450 ml Balance -10 ml Intake Oral 240 ml IV Total 200 ml Output Urine Total 450 ml # Voids 2 # Bowel Movements 1 Laboratory Tests Test 03/05/17 07:55 Prothrombin Time 39.1 SEC (9.30-11.50) H Prothromb Time International Ratio 3.7 (0.9-1.1) H Sodium Level 138 mEQ/L (135-145) Potassium Level 3.8 mEQ/L (3.4-4.9) Chloride Level 101 mEQ/L (98-107) Carbon Dioxide Level 27 mEQ/L (20-30) Anion Gap 10 (5-15) Blood Urea Nitrogen 19 mg/dL (7-23) Creatinine 1.4 mg/dL (0.7-1.2) H Estimat Glomerular Filtration Rate mL/min (>60) Glucose Level 91 mg/dL (74-106) Calcium Level 9.4 mg/dL (8.6-10.2) Magnesium Level 1.5 mg/dL (1.7-2.5) L Troponin I 0.33 ng/mL (<=0.30) *H Pro-B-Type Natriuretic Peptide 19842 pg/mL (0-450) H MELANIE RIVAS Mar 05, 2017 19:32
[2017-03-05] MEDS: Bumetanide 2.5mg/10ml Inj IVP SCH (20:40)
[2017-03-05] MEDS: Atorvastatin 20mg tab ORAL SCH (22:04)
[2017-03-06] VITALS: BP 96/63
[2017-03-06] MEDS: Haloperidol 5mg/ml Inj IM PRN ×3 (02:30→14:46)
[2017-03-06 03:47] VITALS: BP 98/67
[2017-03-06 08:00] VITALS: BP 103/64
[2017-03-06 08:35] LABS: INR 3.7 (0.9-1.1); PROTHROMBIN TIME 38.9 SEC (9.30-11.50)
[2017-03-06] MEDS: Amiodarone 200mg tab ORAL SCH ×2 (08:50→20:48)
[2017-03-06] MEDS: ALPRAZolam 0.25mg tab ORAL SCH (08:50)
[2017-03-06] MEDS: Aspirin Baby 81mg ORAL SCH (08:52)
[2017-03-06] MEDS: Bumetanide 2.5mg/10ml Inj IVP SCH (09:00)
[2017-03-06 12:00] VITALS: BP 108/63
--- NOTE | 2017-03-06 12:47 | Pulmonology Progress Note ---
Assessment/Plan Problems: (1) Acute respiratory failure (2) Pulmonary edema (3) End-stage systolic heart failure (4) Atrial fibrillation (5) EF 10% (6) Severe protein-calorie malnutrition Assessment/Plan heart rate is lower, in and out of sinus had runs of vtach testerday psych evaluation for anxiety optimize cardiac meds, on amiodarone Subjective Interval Events: doens't know how he feels Allergies: Coded Allergies: DIGOXIN (Unverified Allergy, Intermediate, KIDNEY DAMAGE, 09/14/14) CODEINE (Verified Allergy, Unknown, ITCHING, 05/15/12) Objective Last 24 Hour Vital Signs Date Time Temp Pulse Resp B/P (MAP) Pulse Ox O2 Delivery O2 Flow Rate FiO2 03/06/17 12:00 97.3 97 17 108/63 99 Nasal Cannula 2.0 03/06/17 08:02 Nasal Cannula 2.0 28 03/06/17 08:02 98 Nasal Cannula 2.0 28 03/06/17 08:00 104 03/06/17 08:00 97.0 109 22 103/64 98 Nasal Cannula 3.0 03/06/17 04:00 99 03/06/17 03:47 97.8 68 20 98/67 97 Nasal Cannula 2.0 03/06/17 00:00 107 03/05/17 23:46 97.3 87 21 98/65 100 Nasal Cannula 2.0 03/05/17 21:36 96 Nasal Cannula 2.0 28 03/05/17 21:36 Nasal Cannula 2.0 28 03/05/17 19:55 98.8 62 19 103/76 98 Nasal Cannula 2.0 03/05/17 16:00 97.0 68 19 110/69 99 Simple Mask 2.0 03/05/17 16:00 119 General Appearance: WD/WN HEENT: normocephalic, atraumatic Respiratory/Chest: chest wall non-tender, lungs clear Cardiovascular: normal peripheral pulses, normal rate Abdomen: normal bowel sounds, soft, non tender Genitourinary: normal external genitalia Extremities: no clubbing Skin: no rash, no lesions Laboratory Tests 03/06/17 07:35: Prothrombin Time 38.9H, Prothromb Time International Ratio 3.7H Current Medications Medications (Trade) Dose Ordered Sig/Thong Route PRN Reason Start Time Stop Time Status Last Admin Dose Admin Acetaminophen (Tylenol) 650 mg Q4H PRN ORAL FEVER 03/03/17 21:30 04/02/17 21:29 Alprazolam (Xanax) 0.25 mg DAILY ORAL 03/04/17 09:00 03/11/17 08:59 03/06/17 08:50 Amiodarone HCl (Cordarone) 400 mg EVERY 12 HOURS ORAL 03/05/17 21:00 04/04/17 20:59 03/06/17 08:50 Aspirin (ASA) 162 mg DAILY ORAL 03/04/17 09:00 04/03/17 08:59 03/06/17 08:52 Atorvastatin Calcium (Lipitor) 20 mg BEDTIME ORAL 03/04/17 21:00 04/03/17 20:59 03/05/17 22:04 Bumetanide (Bumex) 1 mg BID IVP 03/05/17 20:00 04/04/17 19:59 03/05/17 20:40 Diltiazem HCl (Cardizem) 10 mg Q1H PRN IV heart rate more than 120 03/03/17 21:30 04/02/17 21:29 03/04/17 07:50 Haloperidol Lactate (Haldol) 5 mg Q4H PRN IM Agitation 03/04/17 19:45 04/03/17 19:44 03/06/17 09:21 Nitroglycerin (Ntg) 0.4 mg Q5M PRN SL Prn Chest Pain 03/03/17 21:30 04/02/17 21:29 Ondansetron HCl (Zofran) 4 mg Q6H PRN IVP Nausea & Vomiting 03/03/17 21:30 04/02/17 21:29 Polyethylene Glycol (Miralax) 17 gm DAILYPRN PRN ORAL Constipation 03/03/17 21:30 04/02/17 21:29 Temazepam (Restoril) 15 mg HSPRN PRN ORAL Insomnia 03/03/17 21:30 03/10/17 21:29 03/05/17 22:43 Warfarin Sodium (Coumadin per pharmacy) 1 ea DAILY PRN MISC PER RX PROTOCOL 03/03/17 22:15 04/02/17 22:14 IDALIA WALLS Mar 06, 2017 12:47
[2017-03-06 16:17] VITALS: BP 97/67
--- NOTE | 2017-03-06 17:16 | Consultation ---
History of Present Illness General Date patient seen: Mar 05, 2017 Chief Complaint: General Complaint Present Illness HPI 76 year old male with hx of anxiety endstage heart disease, pace maker, on Home O2 brought in by paramedics with CC of increasing Dyspnea for one week that became unbearable.the pt has episodes of panic attacks and at times gets agitated 'nothing works" the pt also endorses depressed mood anhedonia worthlessness. fatigue and insomnia Allergies: Coded Allergies: DIGOXIN (Unverified Allergy, Intermediate, KIDNEY DAMAGE, 09/14/14) CODEINE (Verified Allergy, Unknown, ITCHING, 05/15/12) Medication History Scheduled Alprazolam* (Xanax*), 0.25 MG ORAL DAILY, (Reported) Amiodarone Hcl* (Pacerone*), 200 MG ORAL BID, (Reported) Aspirin* (Aspirin*), 81 MG ORAL DAILY, (Reported) Atorvastatin Calcium* (Lipitor*), Unknown Dose ORAL BEDTIME, (Reported) Bumetanide* (Bumetanide*), Unknown Dose ORAL DAILY, (Reported) Carvedilol (Coreg Cr), 20 MG * DAILY, (Reported) Doxycycline Monohydrate* (Doxycycline Monohydrate*), 100 MG ORAL Q12H Esomeprazole Magnesium (Nexium), 40 MG PO DAILY, (Reported) Fluticasone Propionate (Fluticasone Propionate), 1 SPRAY NASAL DAILY, (Reported) Magnesium Oxide (Magnesium Oxide), 400 MG ORAL BID, (Reported) Mexiletine HCl (Mexiletine HCl), 150 MG GT TID, (Reported) Propafenone Hcl (Propafenone Hcl), 225 MG PO BID, (Reported) Zolpidem Tartrate* (Ambien*), 10 MG PO HS, (Reported) Miscellaneous Medications Warfarin Sod* (Warfarin Sod*), 3 MG PO, (Reported) Patient History History Provided By: Patient, Medical Record, PMD Healthcare decision maker Resuscitation status Full Code Advanced Directive on File Past Medical/Surgical History Past Medical/Surgical History: (1) Abnormal urogenital findings (2) Urethritis (3) Urethritis (4) Atrial fibrillation (5) SOB (shortness of breath) (6) JENNIFER (acute kidney injury) (7) Pacemaker (8) Acute respiratory failure (9) Pulmonary edema (10) End-stage systolic heart failure (11) Acute end-stage systolic heart failure (12) EF 10% (13) Severe protein-calorie malnutrition Review of Systems Constitutional: Reports: malaise, weakness Psychiatric: Reports: anxiety, depressed feelings, emotional problems Physical Exam General Appearance: alert, moderate distress Neurologic: alert, oriented x 3, responsive, depressed affect Last 24 Hour Vital Signs Date Time Temp Pulse Resp B/P (MAP) Pulse Ox O2 Delivery O2 Flow Rate FiO2 03/06/17 16:17 96.4 50 17 97/67 96 Nasal Cannula 3.0 03/06/17 12:00 87 03/06/17 12:00 97.3 97 17 108/63 99 Nasal Cannula 2.0 03/06/17 08:02 Nasal Cannula 2.0 28 03/06/17 08:02 98 Nasal Cannula 2.0 28 03/06/17 08:00 104 03/06/17 08:00 97.0 109 22 103/64 98 Nasal Cannula 3.0 03/06/17 04:00 99 03/06/17 03:47 97.8 68 20 98/67 97 Nasal Cannula 2.0 03/06/17 00:00 107 03/05/17 23:46 97.3 87 21 98/65 100 Nasal Cannula 2.0 03/05/17 21:36 96 Nasal Cannula 2.0 28 03/05/17 21:36 Nasal Cannula 2.0 28 03/05/17 19:55 98.8 62 19 103/76 98 Nasal Cannula 2.0 Intake and Output 03/06/17 03/07/17 19:00 07:00 Intake Total 650 ml Output Total 150 ml Balance 500 ml Intake Oral 650 ml Output Urine Total 150 ml # Voids 1 # Bowel Movements 1 Laboratory Tests Test 03/06/17 07:35 Prothrombin Time 38.9 SEC (9.30-11.50) H Prothromb Time International Ratio 3.7 (0.9-1.1) H Height (Feet): 5 Height (Inches): 9.00 Weight (Pounds): 169 Medications Current Medications Medications (Trade) Dose Ordered Sig/Thong Route PRN Reason Start Time Stop Time Status Last Admin Dose Admin Acetaminophen (Tylenol) 650 mg Q4H PRN ORAL FEVER 03/03/17 21:30 04/02/17 21:29 Albuterol/ Ipratropium (DuoNeb 0.5-3(2.5)mg/3ml) 3 ml Q4HRT PRN HHN Shortness of Breath 03/06/17 19:00 03/11/17 18:59 Alprazolam (Xanax) 0.25 mg DAILY ORAL 03/04/17 09:00 03/11/17 08:59 03/06/17 08:50 Amiodarone HCl (Cordarone) 400 mg EVERY 12 HOURS ORAL 03/05/17 21:00 04/04/17 20:59 03/06/17 08:50 Aspirin (ASA) 162 mg DAILY ORAL 03/04/17 09:00 04/03/17 08:59 03/06/17 08:52 Atorvastatin Calcium (Lipitor) 20 mg BEDTIME ORAL 03/04/17 21:00 04/03/17 20:59 03/05/17 22:04 Bumetanide (Bumex) 1 mg BID IVP 03/05/17 20:00 04/04/17 19:59 03/05/17 20:40 Diltiazem HCl (Cardizem) 10 mg Q1H PRN IV heart rate more than 120 03/03/17 21:30 04/02/17 21:29 03/04/17 07:50 Haloperidol Lactate (Haldol) 5 mg Q4H PRN IM Agitation 03/04/17 19:45 04/03/17 19:44 03/06/17 14:46 Nitroglycerin (Ntg) 0.4 mg Q5M PRN SL Prn Chest Pain 03/03/17 21:30 04/02/17 21:29 Ondansetron HCl (Zofran) 4 mg Q6H PRN IVP Nausea & Vomiting 03/03/17 21:30 04/02/17 21:29 Polyethylene Glycol (Miralax) 17 gm DAILYPRN PRN ORAL Constipation 03/03/17 21:30 04/02/17 21:29 Temazepam (Restoril) 15 mg HSPRN PRN ORAL Insomnia 03/03/17 21:30 03/10/17 21:29 03/05/17 22:43 Warfarin Sodium (Coumadin per pharmacy) 1 ea DAILY PRN MISC PER RX PROTOCOL 03/03/17 22:15 04/02/17 22:14 Assessment/Plan Status: stable Assessment/Plan mdd anxiety d/o lung edema -paxil 20mg po qhs Sania Estevez M.D. Mar 06, 2017 17:16
--- NOTE | 2017-03-06 17:55 | Cardiology Progress Note ---
Assessment/Plan Assessment/Plan 1. Paroxysmal episodes of atrial fibrillation now with rapid ventricular response. 2. Congestive heart failure, acute on chronic in nature. 3. Severe mitral regurgitation, status post two prior MitraClips with remnants of significant regurgitation. 4. Pulmonary hypertension. 5. Tricuspid regurgitation. 6. History of epicardial pacemaker implantation. 7. Prior history of atrial fibrillation, ablation by Dr. jaramillo 8. "panic attackes" ? chf and afib related d/w dr lugo 03/04 hsitory reviwed pt endstage cm / chf we decided to dc mexiletine adn use amiod instead converted back to sinus amiod load will be continued bp ios fair will need icd interrogation need mroe diuretic for now labs ntoed repeat mag level Subjective Cardiovascular: Reports: palpitations, Denies: chest pain, lightheadedness Respiratory: Reports: shortness of breath Gastrointestinal/Abdominal: Denies: abdominal pain Genitourinary: Reports: burning Subjective still sob adn panic sensation Objective Last 24 Hour Vital Signs Date Time Temp Pulse Resp B/P (MAP) Pulse Ox O2 Delivery O2 Flow Rate FiO2 03/06/17 16:17 96.4 50 17 97/67 96 Nasal Cannula 3.0 03/06/17 16:00 99 03/06/17 12:00 87 03/06/17 12:00 97.3 97 17 108/63 99 Nasal Cannula 2.0 03/06/17 08:02 Nasal Cannula 2.0 28 03/06/17 08:02 98 Nasal Cannula 2.0 28 03/06/17 08:00 104 03/06/17 08:00 97.0 109 22 103/64 98 Nasal Cannula 3.0 03/06/17 04:00 99 03/06/17 03:47 97.8 68 20 98/67 97 Nasal Cannula 2.0 03/06/17 00:00 107 03/05/17 23:46 97.3 87 21 98/65 100 Nasal Cannula 2.0 03/05/17 21:36 96 Nasal Cannula 2.0 28 03/05/17 21:36 Nasal Cannula 2.0 28 03/05/17 19:55 98.8 62 19 103/76 98 Nasal Cannula 2.0 General Appearance: no apparent distress Neck: supple Cardiovascular: normal rate, regular rhythm Respiratory/Chest: lungs clear Abdomen: normal bowel sounds, non tender, soft Extremities: no swelling Intake and Output 03/06/17 03/07/17 19:00 07:00 Intake Total 650 ml Output Total 150 ml Balance 500 ml Intake Oral 650 ml Output Urine Total 150 ml # Voids 1 # Bowel Movements 1 Laboratory Tests Test 03/06/17 07:35 Prothrombin Time 38.9 SEC (9.30-11.50) H Prothromb Time International Ratio 3.7 (0.9-1.1) H MELANIE RIVAS Mar 06, 2017 17:55
[2017-03-06] MEDS ORDERED: DuoNeb 0.5-3(2.5)mg/3ml neb HHN PRN (19:00)
[2017-03-06 20:00] VITALS: BP 109/61
[2017-03-06] MEDS: Atorvastatin 20mg tab ORAL SCH (20:44)
[2017-03-06] MEDS ORDERED: PARoxetine 20mg tab ORAL SCH (21:00)
[2017-03-07] VITALS: BP 96/63
[2017-03-07 04:00] VITALS: BP 110/72
[2017-03-07 07:29] LABS: BASOPHILS % (AUTO) 0.8 % (0.0-2.0); EOSINOPHILS % (AUTO) 0.9 % (0.0-3.0); LYMPHOCYTES % (AUTO) 14.3 % (20.0-45.0); MEAN CORPUSCULAR HEMOGLOBIN 34.7 PG (27.0-31.0); MEAN CORPUSCULAR HGB CONC 33.7 G/DL (32.0-36.0); MEAN CORPUSCULAR VOLUME 103 FL (80-99); MONOCYTES % (AUTO) 8.1 % (1.0-10.0); PLATELET COUNT 124 K/UL (150-450); RED BLOOD COUNT 3.76 M/UL (4.70-6.10); RED CELL DISTRIBUTION WIDTH 12.3 % (11.6-14.8); WHITE BLOOD COUNT 5.4 K/UL (4.8-10.8)
[2017-03-07 07:42] LABS: INR 2.7 (0.9-1.1); PROTHROMBIN TIME 28.6 SEC (9.30-11.50)
[2017-03-07 08:00] VITALS: BP 112/89
[2017-03-07 08:11] LABS: ALANINE AMINOTRANSFERASE 65 U/L (3-41); ALBUMIN/GLOBULIN RATIO 1.1 (1.0-2.7); ANION GAP 11 (5-15); ASPARTATE AMINO TRANSFERASE 57 U/L (5-40); CALCIUM 10.1 mg/dL (8.6-10.2); CARBON DIOXIDE 27 mEQ/L (20-30); CHLORIDE 101 mEQ/L (98-107); CREATININE 1.5 mg/dL (0.7-1.2); HEMOLYSIS 8; POTASSIUM 5.4 mEQ/L (3.4-4.9); SODIUM 139 mEQ/L (135-145); TOTAL PROTEIN 6.4 g/dL (6.6-8.7)
[2017-03-07 08:31] LABS: BILIRUBIN,DIRECT 0.8 mg/dL (0.1-0.3)
[2017-03-07] MEDS: Amiodarone 200mg tab ORAL SCH (08:50)
[2017-03-07] MEDS: ALPRAZolam 0.25mg tab ORAL SCH (08:51)
[2017-03-07] MEDS: Aspirin Baby 81mg ORAL SCH (08:54)
[2017-03-07] MEDS ORDERED: Citalopram Hydrobromide 10 MG TAB ORAL SCH (09:00)
--- NOTE | 2017-03-07 10:08 | Diagnostic Imaging Report ---
Indication: Dyspnea Comparison: 03/03/17 A single view chest radiograph was obtained. Findings: Cardiomegaly and interstitial edema suspected. There is a pacemaker on the right noted. Left hemidiaphragm is silhouetted out and not visualized. Bones are osteopenic. Impression: Mild CHF/interstitial edema suspected. Small left pleural effusion may be present.
[2017-03-07 12:00] VITALS: BP 120/77
--- NOTE | 2017-03-07 12:19 | Pulmonology Progress Note ---
Assessment/Plan Problems: (1) Acute respiratory failure (2) Pulmonary edema (3) End-stage systolic heart failure (4) Atrial fibrillation (5) EF 10% (6) Severe protein-calorie malnutrition Assessment/Plan still short of breath doens't want rehab heart rate is lower, in and out of sinus psych evaluation for anxiety optimize cardiac meds, on amiodarone dc home with hospice if he agrees. Subjective ROS Limited/Unobtainable: No Interval Events: still short of breath Allergies: Coded Allergies: DIGOXIN (Unverified Allergy, Intermediate, KIDNEY DAMAGE, 09/14/14) CODEINE (Verified Allergy, Unknown, ITCHING, 05/15/12) Objective Last 24 Hour Vital Signs Date Time Temp Pulse Resp B/P (MAP) Pulse Ox O2 Delivery O2 Flow Rate FiO2 03/07/17 08:00 97.2 88 20 112/89 96 Nasal Cannula 2.0 03/07/17 08:00 90 03/07/17 06:43 99 Nasal Cannula 2.0 03/07/17 06:43 Nasal Cannula 2.0 03/07/17 04:00 92 03/07/17 04:00 96.9 78 21 110/72 100 Nasal Cannula 3.0 03/07/17 00:00 90 03/07/17 00:00 97.3 88 20 96/63 98 Nasal Cannula 3.0 03/06/17 20:03 99 Nasal Cannula 2.0 28 03/06/17 20:03 Nasal Cannula 2.0 28 03/06/17 20:00 96.9 67 24 109/61 100 Room Air 03/06/17 20:00 103 03/06/17 16:17 96.4 50 17 97/67 96 Nasal Cannula 3.0 03/06/17 16:00 99 General Appearance: cachetic HEENT: normocephalic, atraumatic Respiratory/Chest: chest wall non-tender, lungs clear Cardiovascular: normal peripheral pulses, normal rate Abdomen: normal bowel sounds, soft, non tender, no organomegaly Extremities: no cyanosis, no clubbing Neurologic/Psychiatric: pan helper II-XII grossly normal Laboratory Tests 03/07/17 06:25: White Blood Count 5.4, Red Blood Count 3.76L, Hemoglobin 13.1L, Hematocrit 38.7L , Mean Corpuscular Volume 103H, Mean Corpuscular Hemoglobin 34.7H, Mean Corpuscular Hemoglobin Concent 33.7, Red Cell Distribution Width 12.3, Platelet Count 124L, Mean Platelet Volume 12.0H, Neutrophils (%) (Auto) 76.0H, Lymphocytes (%) (Auto) 14.3L, Monocytes (%) (Auto) 8.1, Eosinophils (%) (Auto) 0.9, Basophils (%) (Auto) 0.8, Prothrombin Time 28.6H, Prothromb Time International Ratio 2.7H, Sodium Level 139, Potassium Level 5.4H, Chloride Level 101, Carbon Dioxide Level 27, Anion Gap 11, Blood Urea Nitrogen 23, Creatinine 1.5H, Estimat Glomerular Filtration Rate , Glucose Level 94, Calcium Level 10.1, Magnesium Level 1.6L, Total Bilirubin 2.7H, Direct Bilirubin 0.8H, Aspartate Amino Transf (AST/SGOT) 57H, Alanine Aminotransferase (ALT/SGPT) 65H, Alkaline Phosphatase 102, Pro-B-Type Natriuretic Peptide [id number], Total Protein 6.4L, Albumin 3.4L, Globulin 3.0, Albumin/Globulin Ratio 1.1 Current Medications Medications (Trade) Dose Ordered Sig/Thong Route PRN Reason Start Time Stop Time Status Last Admin Dose Admin Acetaminophen (Tylenol) 650 mg Q4H PRN ORAL FEVER 03/03/17 21:30 04/02/17 21:29 Alprazolam (Xanax) 0.25 mg DAILY ORAL 03/04/17 09:00 03/11/17 08:59 03/07/17 08:51 Amiodarone HCl (Cordarone) 400 mg EVERY 12 HOURS ORAL 03/05/17 21:00 04/04/17 20:59 03/07/17 08:50 Aspirin (ASA) 162 mg DAILY ORAL 03/04/17 09:00 04/03/17 08:59 03/07/17 08:54 Atorvastatin Calcium (Lipitor) 20 mg BEDTIME ORAL 03/04/17 21:00 04/03/17 20:59 03/06/17 20:44 Diltiazem HCl (Cardizem) 10 mg Q1H PRN IV heart rate more than 120 03/03/17 21:30 04/02/17 21:29 03/04/17 07:50 Haloperidol Lactate (Haldol) 5 mg Q4H PRN IM Agitation 03/04/17 19:45 04/03/17 19:44 03/06/17 14:46 Nitroglycerin (Ntg) 0.4 mg Q5M PRN SL Prn Chest Pain 03/03/17 21:30 04/02/17 21:29 Ondansetron HCl (Zofran) 4 mg Q6H PRN IVP Nausea & Vomiting 03/03/17 21:30 04/02/17 21:29 Paroxetine HCl (Paxil) 20 mg BEDTIME ORAL 03/06/17 21:00 04/05/17 20:59 03/06/17 20:44 Polyethylene Glycol (Miralax) 17 gm DAILYPRN PRN ORAL Constipation 03/03/17 21:30 04/02/17 21:29 Temazepam (Restoril) 15 mg HSPRN PRN ORAL Insomnia 03/03/17 21:30 03/10/17 21:29 03/06/17 20:48 Warfarin Sodium (Coumadin per pharmacy) 1 ea DAILY PRN MISC PER RX PROTOCOL 03/03/17 22:15 04/02/17 22:14 IDALIA WALLS Mar 07, 2017 12:19
--- NOTE | 2017-03-07 14:24 | Geriatric Progress Note ---
Assessment/Plan Assessment/Plan Mdd, anxiety d/o -cont current meds -provided ro/st -explained to him that xanax is not a good medication in this situation -date of visit 03/06/17 Discussed with: patient Subjective Constitutional: Reports: malaise, weakness Respiratory: Reports: shortness of breath Mood/Memory: Reports: prior hx, anxiety, depressed feelings, emotional problems Psychiatric: Reports: see HPI Sleep: Reports: doesn't sleep well Geriatric Geriatric Last 24 Hour Vital Signs Date Time Temp Pulse Resp B/P (MAP) Pulse Ox O2 Delivery O2 Flow Rate FiO2 03/07/17 12:00 97.2 77 22 120/77 95 Nasal Cannula 3.0 03/07/17 12:00 105 03/07/17 08:00 97.2 88 20 112/89 96 Nasal Cannula 2.0 03/07/17 08:00 90 03/07/17 06:43 99 Nasal Cannula 2.0 03/07/17 06:43 Nasal Cannula 2.0 03/07/17 04:00 92 03/07/17 04:00 96.9 78 21 110/72 100 Nasal Cannula 3.0 03/07/17 00:00 90 03/07/17 00:00 97.3 88 20 96/63 98 Nasal Cannula 3.0 03/06/17 20:03 99 Nasal Cannula 2.0 28 03/06/17 20:03 Nasal Cannula 2.0 28 03/06/17 20:00 96.9 67 24 109/61 100 Room Air 03/06/17 20:00 103 03/06/17 16:17 96.4 50 17 97/67 96 Nasal Cannula 3.0 03/06/17 16:00 99 Laboratory Tests Test 03/07/17 06:25 White Blood Count 5.4 K/UL (4.8-10.8) Red Blood Count 3.76 M/UL (4.70-6.10) L Hemoglobin 13.1 G/DL (14.2-18.0) L Hematocrit 38.7 % (42.0-52.0) L Mean Corpuscular Volume 103 FL (80-99) H Mean Corpuscular Hemoglobin 34.7 PG (27.0-31.0) H Mean Corpuscular Hemoglobin Concent 33.7 G/DL (32.0-36.0) Red Cell Distribution Width 12.3 % (11.6-14.8) Platelet Count 124 K/UL (150-450) L Mean Platelet Volume 12.0 FL (6.5-10.1) H Neutrophils (%) (Auto) 76.0 % (45.0-75.0) H Lymphocytes (%) (Auto) 14.3 % (20.0-45.0) L Monocytes (%) (Auto) 8.1 % (1.0-10.0) Eosinophils (%) (Auto) 0.9 % (0.0-3.0) Basophils (%) (Auto) 0.8 % (0.0-2.0) Prothrombin Time 28.6 SEC (9.30-11.50) H Prothromb Time International Ratio 2.7 (0.9-1.1) H Sodium Level 139 mEQ/L (135-145) Potassium Level 5.4 mEQ/L (3.4-4.9) H Chloride Level 101 mEQ/L (98-107) Carbon Dioxide Level 27 mEQ/L (20-30) Anion Gap 11 (5-15) Blood Urea Nitrogen 23 mg/dL (7-23) Creatinine 1.5 mg/dL (0.7-1.2) H Estimat Glomerular Filtration Rate mL/min (>60) Glucose Level 94 mg/dL (74-106) Calcium Level 10.1 mg/dL (8.6-10.2) Magnesium Level 1.6 mg/dL (1.7-2.5) L Total Bilirubin 2.7 mg/dL (0.0-1.2) H Direct Bilirubin 0.8 mg/dL (0.1-0.3) H Aspartate Amino Transf (AST/SGOT) 57 U/L (5-40) H Alanine Aminotransferase (ALT/SGPT) 65 U/L (3-41) H Alkaline Phosphatase 102 U/L (40-129) Pro-B-Type Natriuretic Peptide 14930 pg/mL (0-450) H Total Protein 6.4 g/dL (6.6-8.7) L Albumin 3.4 g/dL (3.5-5.2) L Globulin 3.0 g/dL Albumin/Globulin Ratio 1.1 (1.0-2.7) Current Medications Medications (Trade) Dose Ordered Sig/Thong Route PRN Reason Start Time Stop Time Status Last Admin Dose Admin Acetaminophen (Tylenol) 650 mg Q4H PRN ORAL FEVER 03/03/17 21:30 04/02/17 21:29 Alprazolam (Xanax) 0.25 mg DAILY ORAL 03/04/17 09:00 03/11/17 08:59 03/07/17 08:51 Amiodarone HCl (Cordarone) 400 mg EVERY 12 HOURS ORAL 03/05/17 21:00 04/04/17 20:59 03/07/17 08:50 Aspirin (ASA) 162 mg DAILY ORAL 03/04/17 09:00 04/03/17 08:59 03/07/17 08:54 Atorvastatin Calcium (Lipitor) 20 mg BEDTIME ORAL 03/04/17 21:00 04/03/17 20:59 03/06/17 20:44 Diltiazem HCl (Cardizem) 10 mg Q1H PRN IV heart rate more than 120 03/03/17 21:30 04/02/17 21:29 03/04/17 07:50 Haloperidol Lactate (Haldol) 5 mg Q4H PRN IM Agitation 03/04/17 19:45 04/03/17 19:44 03/06/17 14:46 Nitroglycerin (Ntg) 0.4 mg Q5M PRN SL Prn Chest Pain 03/03/17 21:30 04/02/17 21:29 Ondansetron HCl (Zofran) 4 mg Q6H PRN IVP Nausea & Vomiting 03/03/17 21:30 04/02/17 21:29 Paroxetine HCl (Paxil) 20 mg BEDTIME ORAL 03/06/17 21:00 04/05/17 20:59 03/06/17 20:44 Polyethylene Glycol (Miralax) 17 gm DAILYPRN PRN ORAL Constipation 03/03/17 21:30 04/02/17 21:29 Temazepam (Restoril) 15 mg HSPRN PRN ORAL Insomnia 03/03/17 21:30 03/10/17 21:29 03/06/17 20:48 Warfarin Sodium (Coumadin per pharmacy) 1 ea DAILY PRN MISC PER RX PROTOCOL 03/03/17 22:15 04/02/17 22:14 Warfarin Sodium (Coumadin) 1 mg COUMADIN ONCE ORAL 03/07/17 17:00 03/07/17 17:01 Height (Feet): 5 Height (Inches): 9.00 Weight (Pounds): 170 General Appearance: alert, good eye contact, thin Neurologic: alert, oriented x3, responsive Psychiatric Behavior: cooperative Language/Speech: intact Orientation: person, place, time, situation Affect: restricted Insight: good Memory: immediate, recent, remote Sania Estevez M.D. Mar 07, 2017 14:24
--- NOTE | 2017-03-07 14:45 | General Progress Note ---
Assessment/Plan Status: stable, progressing Assessment/Plan cont paxil Subjective Constitutional: Reports: malaise, weakness Respiratory: Reports: shortness of breath Gastrointestinal/Abdominal: Reports: poor appetite Neurologic/Psychiatric: Reports: anxiety, depressed, emotional problems Allergies: Coded Allergies: DIGOXIN (Unverified Allergy, Intermediate, KIDNEY DAMAGE, 09/14/14) CODEINE (Verified Allergy, Unknown, ITCHING, 05/15/12) Objective Last 24 Hour Vital Signs Date Time Temp Pulse Resp B/P (MAP) Pulse Ox O2 Delivery O2 Flow Rate FiO2 03/07/17 12:00 97.2 77 22 120/77 95 Nasal Cannula 3.0 03/07/17 12:00 105 03/07/17 08:00 97.2 88 20 112/89 96 Nasal Cannula 2.0 03/07/17 08:00 90 03/07/17 06:43 99 Nasal Cannula 2.0 03/07/17 06:43 Nasal Cannula 2.0 03/07/17 04:00 92 03/07/17 04:00 96.9 78 21 110/72 100 Nasal Cannula 3.0 03/07/17 00:00 90 03/07/17 00:00 97.3 88 20 96/63 98 Nasal Cannula 3.0 03/06/17 20:03 99 Nasal Cannula 2.0 28 03/06/17 20:03 Nasal Cannula 2.0 28 03/06/17 20:00 96.9 67 24 109/61 100 Room Air 03/06/17 20:00 103 03/06/17 16:17 96.4 50 17 97/67 96 Nasal Cannula 3.0 03/06/17 16:00 99 Laboratory Tests 03/07/17 06:25: White Blood Count 5.4, Red Blood Count 3.76L, Hemoglobin 13.1L, Hematocrit 38.7L , Mean Corpuscular Volume 103H, Mean Corpuscular Hemoglobin 34.7H, Mean Corpuscular Hemoglobin Concent 33.7, Red Cell Distribution Width 12.3, Platelet Count 124L, Mean Platelet Volume 12.0H, Neutrophils (%) (Auto) 76.0H, Lymphocytes (%) (Auto) 14.3L, Monocytes (%) (Auto) 8.1, Eosinophils (%) (Auto) 0.9, Basophils (%) (Auto) 0.8, Prothrombin Time 28.6H, Prothromb Time International Ratio 2.7H, Sodium Level 139, Potassium Level 5.4H, Chloride Level 101, Carbon Dioxide Level 27, Anion Gap 11, Blood Urea Nitrogen 23, Creatinine 1.5H, Estimat Glomerular Filtration Rate , Glucose Level 94, Calcium Level 10.1, Magnesium Level 1.6L, Total Bilirubin 2.7H, Direct Bilirubin 0.8H, Aspartate Amino Transf (AST/SGOT) 57H, Alanine Aminotransferase (ALT/SGPT) 65H, Alkaline Phosphatase 102, Pro-B-Type Natriuretic Peptide [id number], Total Protein 6.4L, Albumin 3.4L, Globulin 3.0, Albumin/Globulin Ratio 1.1 Height (Feet): 5 Height (Inches): 9.00 Weight (Pounds): 170 General Appearance: alert, moderate distress, thin Neurologic: alert, oriented x 3, responsive, depressed affect Sania Estevez M.D. Mar 07, 2017 14:45
[2017-03-07 16:00] VITALS: BP 100/79
[2017-03-07] MEDS ORDERED: Warfarin Sodium 1mg ORAL ONE (17:00)
[2017-03-07] MEDS ORDERED: Sterile Water Irrig 1000ml IRRIG ONE (17:40)
--- NOTE | 2017-03-08 12:45 | Cardiology Report ---
APPROVED REPORT EKG Measurement Heart [id number] Poor data quality,Precludes full analysis. interpretation may be adversely affected Undetermined rhythm Nonspecific intraventricular block Possible Right ventricular hypertrophy Lateral infarct, age undetermined Marked ST abnormality, possible anterior subendocardial injury Abnormal ECG
--- NOTE | 2017-03-10 23:11 | Discharge Summary ---
Discharge Summary Hospital Course Date of Admission Mar 03, 2017 at 20:45 Date of Discharge Mar 07, 2017 at 17:41 Admitting Diagnosis SOB/Atrial fib HPI Fady Raya is a 76 year old male who was admitted on Mar 03, 2017 at 20:45 for Shortness Of Breath/Atrial Fibrillation Hospital Course dc summary #[id number] Discharge Medications New Medications: Ipratropium [place] (Atrovent Hfa) 12.9 Gm Hfa.aer.ad 12.9 GM IH EVERY 4 HOURS for 30 Days, ML Alprazolam* (Xanax*) 0.25 Mg Tablet 0.25 MG ORAL DAILY for 30 Days, TAB Haloperidol Lactate (Haloperidol Lactate) 5 Mg/1 Ml Vial 5 MG IM Q4H PRN for 30 Days, VIAL Paroxetine Hcl* (Paxil*) 20 Mg Tablet 20 MG ORAL BEDTIME for 30 Days, TAB [Warfarin per pharmacy] () 1 EA MISC 1 EA MISC DAILY PRN for 30 Days Continued Medications: Amiodarone Hcl* (Pacerone*) 200 Mg Tablet 200 MG ORAL BID, TAB Discharge Discharge Disposition Patient was discharged to SNF/Subacute Facility(03) Discharge Diagnoses: Discharge Instructions Discharge Instructions Special Instructions I have been assigned to complete a D/C Summary on this account. I was not involved in the patient management Brenda Lara NP (Vanchtein) Mar 10, 2017 23:11
--- NOTE | 2017-03-11 10:35 | Discharge Summary 2 SIG ---
DATE OF ADMISSION: 02/24/2017 DATE OF DISCHARGE: 03/07/2017 REASON FOR ADMISSION: The patient is a 76-year-old male with history of end-stage of heart disease, pacemaker, on home oxygen, was brought by paramedics with a chief complaint of increasing dyspnea for one week, which became unbearable. By paramedics, the patient was in atrial fibrillation with rapid ventricular response to 160 on the scene. The patient was not sure if he had atrial fibrillation, but he was taking Coreg and anticoagulation. Per electronic medical record, the patient had a history of atrial fibrillation in 2011. The patient with past medical history significant for [place], hypertension, pacemaker, renal insufficiency, and history of CVA with left side weakness. EKG revealed atrial fibrillation with rapid ventricular response of 120. Hemoglobin and hematocrit were stable. No leukocytosis. Troponin negative. Mild JENNIFER. Gentle hydration given in the emergency department. Chest x-ray revealed cardiomegaly and pacemaker. The patient was admitted for further management. ADMITTING DIAGNOSES: 1. Paroxysmal atrial fibrillation with rapid ventricular response. 2. Prior history of atrial fibrillation, status post ablation. 3. Acute respiratory failure. 4. End-stage heart failure, pacemaker. 5. Acute kidney injury. HOSPITAL COURSE: The patient was admitted to telemetry floor. Cardiology consult and Psychiatry consult were requested. Serial troponin x2 were negative, the last one with minimum elevation 0.33 . Lipid panel was stable. Echocardiogram revealed ejection fraction 10% to 15% and right ventricular systolic pressure of 69 consistent with severe pulmonary hypertension as well as evidence of moderate aortic regurgitation, moderate to severe mitral regurgitation, and moderate to severe tricuspid regurgitation. The patient reports prior , however, with remnant regurgitation. Cardiology discussed the patient with machine binding folder who follows him in [facility]. The patient was treated , discontinued the patient's amiodarone for rate control. Continued anticoagulation. Diuretics provided. Intake and output, renal parameters, and electrolytes were closely monitored. The patient was on medical management for systolic heart failure including Coreg and diuretic. No ANALILIA inhibitor since blood pressure was low and the patient also had elevated potassium. According to machine binding folder, the pacemaker needs to be interrogated. The patient also had severe protein-calorie malnutrition. Dietary recommendation implemented. Psychiatrist had seen and evaluated the patient, diagnosed him with major depressive disorder and anxiety disorder. The patient was started on . Renal ultrasound revealed no acute hydronephrosis, prostate hypertrophy, bladder wall thickening likely secondary to chronic bladder outlet impediment. Initial creatinine 1.6 and prior to discharge 1.5, likely chronic kidney disease. Per Cardiology, the patient had extensive workup in [facility]. Lipid panel was stable. The patient also has a history of prior ablation secondary to paroxysmal atrial fibrillation. The patient converted back to sinus rhythm. The patient will need more diuretics. The patient was stable for discharge. DISCHARGE DIAGNOSES: 1. Acute respiratory failure. 2. Congestive heart failure, acute on chronic. 3. End-stage heart disease. 4. Severe mitral regurgitation, status post . 5. Paroxysmal atrial fibrillation with rapid ventricular response. 6. Prior history of atrial fibrillation, status post ablation. 7. Chronic kidney insufficiency. 8. Severe pulmonary hypertension. 9. History of pacemaker implantation. Echocardiogram revealed ejection fraction 10% to 15%, left ventricular systolic pressure of 59 consistent with severe pulmonary hypertension as well as moderate aortic regurgitation, moderate to severe mitral regurgitation, and moderate to severe tricuspid regurgitation. 10. Severe protein-calorie malnutrition. Of note, dietary recommendation implemented. 11. Major depressive disorder. 12. Anxiety disorder. 13. Nonischemic cardiomyopathy. DISCHARGE MEDICATIONS: See medication reconciliation list. The patient has end-stage heart disease and recommended hospice care. Family in agreement to send the patient to alf. Family inclined to hospice care prior to discharge. Final decisions yet to be made in a few days. The patient was stable for discharge. DISCHARGE INSTRUCTIONS: The patient was discharged to shelter facility. FOLLOWUP: Follow up with medical doctor in the facility. Junior Melgar M.D. I have been assigned to dictate discharge summary on this account and I was not involved in the patient's management. Brenda Lara (vanchtein) N.PAbby CORLEY: DARRIAN JOB#: [id number] CC:
== END 2017-03-07 17:41 | DRG 291 ==
LOC: EDBD 17:47 → EMR 18:35 → 2E 20:45 → EDBEDREQ 22:03 → 2E 03-04 20:07
DX: I50.23 Acute on chronic systolic (congestive) heart failure (principal); J96.00 Acute respiratory failure, unspecified whether with hypoxia or hypercapnia; E43 Unspecified severe protein-calorie malnutrition; N17.9 Acute kidney failure, unspecified; I27.2 Other secondary pulmonary hypertension; I48.0 Paroxysmal atrial fibrillation; I69.354 Hemiplegia and hemiparesis following cerebral infarction affecting left non-dominant side; I42.9 Cardiomyopathy, unspecified; E87.5 Hyperkalemia; I34.0 Nonrheumatic mitral (valve) insufficiency; Z79.01 Long term (current) use of anticoagulants; Z95.0 Presence of cardiac pacemaker; Z88.6 Allergy status to analgesic agent; Z88.8 Allergy status to other drugs, medicaments and biological substances; I35.1 Nonrheumatic aortic (valve) insufficiency; I36.1 Nonrheumatic tricuspid (valve) insufficiency; F32.9 Major depressive disorder, single episode, unspecified; F41.9 Anxiety disorder, unspecified; N18.9 Chronic kidney disease, unspecified; I25.5 Ischemic cardiomyopathy; Z87.891 Personal history of nicotine dependence; R00.0 Tachycardia, unspecified; I25.2 Old myocardial infarction
CPT/HCPCS: 36415; 71010; 76775; 80048; 80053; 80061; 82248; 82550; 82553; 83735; 83880; 84133; 84300; 84443; 84484; 84550; 85025; 85610; 85730; 86140; 89050; 93005; 93306; 94640; 94664; 94760; 99285; J2405; J7620; J8499

== ENCOUNTER 2017-03-19 20:35 | Inpatient (IN) | payer MEDICARE, OTHER ==
[~2017-03-19] VITALS: Ht 170.2 cm; Wt 58.1 kg
[~2017-03-19 20:35] MED LIST changes: +ATORVASTATIN CA10 MG ORAL; +BUMETANIDE0.5 MG ORAL
--- NOTE | 2017-03-19 21:36 | Emergency Room Report ---
History of Present Illness General Chief Complaint: Altered Level of Consciousness Source: EMS Present Illness HPI Patient presents with altered mentation. This began one hour before paramedics were called. Apparently a glucose was checked and it was 49. Glucagon was given. When paramedics arrived his blood glucose was up to 79. He is tachycardic. He also has icterus. He has a pacemaker. He is somewhat short of breath. He's unable to give a history at this time. Apparently his PMD asked for evaluation for Hospice this afternoon. Apparently rheumatic valvular disease. A fib. CHF with EF = 10%. Anticoagulated with coumadin. He was discharged 03/07 with these discharge diagnoses: 1. Acute respiratory failure. 2. Congestive heart failure, acute on chronic. 3. End-stage heart disease. 4. Severe mitral regurgitation, status post two Kadi-Clips 5. Paroxysmal atrial fibrillation with rapid ventricular response. 6. Prior history of atrial fibrillation, status post ablation. 7. Nonischemic cardiomyopathy. 8. Severe pulmonary hypertension. 9. History of pacemaker implantation. 10. Severe protein-calorie malnutrition. 11. Major depressive disorder. 12. Anxiety disorder. 13.Chronic kidney disease Allergies: Coded Allergies: DIGOXIN (Unverified Allergy, Intermediate, KIDNEY DAMAGE, 09/14/14) CODEINE (Verified Allergy, Unknown, ITCHING, 05/15/12) Patient History Limited by: medical condition Past Medical History: see triage record, old chart reviewed Past Surgical History: pacemaker, other - ablation Social History: Denies: smoking, alcohol use, drug use Social History Narrative SNF - the denial of EtOH, smoking and drugs is based on documentation in the old record Reviewed Nursing Documentation: PMH: Agreed, PSxH: Agreed Nursing Documentation-PMH Hx Cardiac Problems: Yes - A-fib Hx Hypertension: Yes Hx Pacemaker: Yes - RT Hx Asthma: No Hx COPD: No Hx Diabetes: No Hx Cancer: No Hx Gastrointestinal Problems: Yes - HERNIA (inguinal) Hx Dialysis: No - RENAL INSUFFIENCY Hx Neurological Problems: No 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 Hx Seizures: No Review of Systems All Other Systems: limited Physical Exam Vital Signs Date Time Temp Pulse Resp B/P (MAP) Pulse Ox O2 Delivery O2 Flow Rate FiO2 03/19/17 20:29 100 14 130/69 99 Non-Rebreather 15.0 Sp02 EP Interpretation: reviewed, normal General Appearance: moderate distress, thin, Chronically Ill, Stupor Head: normocephalic Eyes: bilateral eye PERRL, bilateral eye scleral icterus ENT: dry mucus membranes - white buildup tongue Neck: supple Respiratory: lungs clear, no retraction, other - tachypnea Cardiovascular #1: tachycardia Cardiovascular #2: 2+ radial (R), 2+ femoral (R) Gastrointestinal: normal inspection, non tender, no mass, non-distended, abnormal bowel sounds - abscent, scaphoid Genitourinary: normal inspection Musculoskeletal: back normal, normal range of motion - UE Neurologic: responsive - to pain, but not communicating, sensory intact, motor weakness - LE Psychiatric: other - stupor Reflexes: 1+ knee (R), 1+ knee (L) Skin: warm/dry Procedures Critical Care Time Critical Care Time Total Critical Care Time: 90 min bedside evaluation and treatment excludes procedures (EKG, CVP, intubation). Reason for critical care: hypoglycemia, sepsis, respiratory distress, coagulopathy Possible complications: hypotension, hypertension, MO, shock, arrhythmias, metabolic acidosis, end organ damage, respiratory failure. Interventions: sepsis resuscitation, tx hypoglycemia, repeat evaluations, sedation, treatment coagulopathy Course: Patient presented with aloc and hypoglycemia with tachypnea. Clinically septic. Fluid resuscitation initiated. Transient hypotension with worsened mentation. Intubated. CVP begun. Improved with fluids. Antibiotics begun. Coagulopathy tx with vitamin K IV and arrange for FFP transfusion. Repeat evaluations. Responsive with increased BP with levophed. Versed drip begun. POLST reviewed and discussed with critical care MD. Glucose dropped again, tx with D50W and glucose solution started. Consultations: nursing staff, EMS, respiratory, blood bank, critical care MD Performed by: Dr. Huston Tolerated well condition = critical Central Line Central Line : Consent: Emergent Central Line Lumen: triple Maximal Sterile Barrier Tech: yes cap, yes mask, yes sterile gown, yes sterile gloves, yes large sterile sheet, yes hand hygiene, yes chlorhexidine prep Central Line Postion: femoral (R) Anesthesia: none Complications: none Central Line Post Position: sutured, good blood return Attempts: One Patient Tolerated: Well Complications: None Progress some ooze with coagulopathy. 23 ml obtained for labs and ebl = 3 ml. Intubation Intubation : Consent: Emergent Intubation Method: orotracheal Tube Size (cm): 7.5 Medications: Versed Breath Sounds after Intubation: equal Intubation Complications: no complications Post Intubation Xray: Yes Attempts: One Patient Tolerated: Well Complications: None Medical Decision Making Diagnostic Impression: Primary Impression: Severe sepsis Additional Impressions: Hypoglycemia Liver failure Qualified Codes: K72.90 - Hepatic failure, unspecified without coma Coagulopathy Renal failure Qualified Codes: N17.9 - Acute kidney failure, unspecified ER Course Patient presents with altered mentation and evidence of liver failure with tachycardia and hypoglycemia. Differential includes sepsis, other occult infection, acute myocardial infarction, dehydration, protein calorie malnutrition amongst others. The patient is in a fair amount of distress and needs to have a septic workup with an IV resuscitation. EKG with atrial fibrillation and rapid rate with occasional PVCs. The heart rate is 128. Chest x-ray reveals cardiomegaly and possible bilateral infiltrates. Is a pacemaker also. Labs with leukocytosis, renal failure, good h/h. Elevated lactic acid. See critical care note. Pt deteriorated with decreased mentation and hypotension. Intubated and central line started. BNP high. BP low again after bolus. Levophed begun. Improved mentation and BP on levophed. Versed drip begun. Admit ICU Dr. Melgar. Prognosis poor. Laboratory Tests Test 03/19/17 22:10 03/19/17 22:17 03/19/17 23:05 03/19/17 23:38 White Blood Count 18.0 K/UL (4.8-10.8) H Red Blood Count 4.27 M/UL (4.70-6.10) L Hemoglobin 14.7 G/DL (14.2-18.0) Hematocrit 45.5 % (42.0-52.0) Mean Corpuscular Volume 107 FL (80-99) H Mean Corpuscular Hemoglobin 34.5 PG (27.0-31.0) H Mean Corpuscular Hemoglobin Concent 32.3 G/DL (32.0-36.0) Red Cell Distribution Width 15.5 % (11.6-14.8) H Platelet Count 148 K/UL (150-450) L Mean Platelet Volume 10.8 FL (6.5-10.1) H Neutrophils (%) (Auto) 96.1 % (45.0-75.0) H Lymphocytes (%) (Auto) 1.8 % (20.0-45.0) L Monocytes (%) (Auto) 1.8 % (1.0-10.0) Eosinophils (%) (Auto) 0.0 % (0.0-3.0) Basophils (%) (Auto) 0.3 % (0.0-2.0) Prothrombin Time > 100.0 SEC (9.30-11.50) H Prothrombin Time INR > 10.0 (0.9-1.1) *H PTT 45 SEC (23-33) H Sodium Level 134 mEQ/L (135-145) L Potassium Level 4.8 mEQ/L (3.4-4.9) Chloride Level 80 mEQ/L (98-107) L Carbon Dioxide Level 18 mEQ/L (20-30) L Anion Gap 36 (5-15) H Blood Urea Nitrogen 77 mg/dL (7-23) H Creatinine 4.7 mg/dL (0.7-1.2) H Estimate Glomerular Filtration Rate mL/min (>60) Glucose Level 71 mg/dL (74-106) L Lactic Acid Level 12.40 mmol/L (0.66-2.22) H 9.50 mmol/L (0.66-2.22) H Calcium Level 8.8 mg/dL (8.6-10.2) Total Bilirubin 10.6 mg/dL (0.0-1.2) H Direct Bilirubin 6.4 mg/dL (0.1-0.3) H Aspartate Amino Transferase (AST) 1487 U/L (5-40) H Alanine Aminotransferase (ALT) 679 U/L (3-41) H Alkaline Phosphatase 136 U/L (40-129) H Ammonia 66 umol/L (16-60) H Total Creatine Kinase 423 U/L (38-174) H Troponin I < 0.30 ng/mL (<=0.30) Pro-B-Type Natriuretic Peptide > 29690 pg/mL (0-450) H Total Protein 6.2 g/dL (6.6-8.7) L Albumin 3.4 g/dL (3.5-5.2) L Globulin 2.8 g/dL Albumin/Globulin Ratio 1.2 (1.0-2.7) Thyroid Stimulating Hormone (TSH) 1.450 uIU/mL (0.300-4.500) Salicylates Level < 1 mg/dL (10-30) L Acetaminophen Level < 10 ug/mL (10-30) L Serum Alcohol < 10 mg/dL Urine Color Brown Urine Appearance Clear Urine pH 5 (4.5-8.0) Urine Specific [place] 1.025 (1.005-1.035) Urine Protein 4+ (NEGATIVE) H Urine Glucose (UA) Negative (NEGATIVE) Urine Ketones Negative (NEGATIVE) Urine Occult Blood 4+ (NEGATIVE) H Urine Nitrite Positive (NEGATIVE) H Urine Bilirubin 2+ (NEGATIVE) H Urine Ictotest Positive Urine Urobilinogen 8 MG/DL (0.0-1.0) H Urine Leukocyte Esterase 1+ (NEGATIVE) H Urine RBC 0-2 /HPF (0 - 0) H Urine WBC 0-2 /HPF (0 - 0) Urine Squamous Epithelial Cells Occasional /LPF Urine Amorphous Sediment Moderate /LPF (NONE) H Urine Bacteria Moderate /HPF (NONE) H Arterial Blood pH 7.407 (7.350-7.450) Arterial Blood Partial Pressure CO2 24.5 mmHg (35.0-45.0) *L Arterial Blood Partial Pressure O2 246.2 mmHg (75.0-100.0) H Arterial Blood HCO3 15.1 mmol/L (22.0-26.0) L Arterial Blood Oxygen Saturation 99.6 % (92.0-98.0) H Arterial Blood Base Excess -7.7 Shawn Test Positive Test 03/20/17 04:45 03/20/17 10:20 White Blood Count 12.1 K/UL (4.8-10.8) H Red Blood Count 4.06 M/UL (4.70-6.10) L Hemoglobin 14.1 G/DL (14.2-18.0) L Hematocrit 43.4 % (42.0-52.0) Mean Corpuscular Volume 107 FL (80-99) H Mean Corpuscular Hemoglobin 34.7 PG (27.0-31.0) H Mean Corpuscular Hemoglobin Concent 32.4 G/DL (32.0-36.0) Red Cell Distribution Width 15.2 % (11.6-14.8) H Platelet Count 150 K/UL (150-450) Mean Platelet Volume 10.7 FL (6.5-10.1) H Neutrophils (%) (Auto) % (45.0-75.0) Lymphocytes (%) (Auto) % (20.0-45.0) Monocytes (%) (Auto) % (1.0-10.0) Eosinophils (%) (Auto) % (0.0-3.0) Basophils (%) (Auto) % (0.0-2.0) Differential Total Cells Counted 100 Neutrophils % (Manual) 86 % (45-75) H Lymphocytes % (Manual) 3 % (20-45) L Monocytes % (Manual) 10 % (1-10) Eosinophils % (Manual) 0 % (0-3) Basophils % (Manual) 0 % (0-2) Band Neutrophils 1 % (0-8) Platelet Estimate Adequate Platelet Morphology Normal Macrocytosis 1+ Raphael Cells 1+ Acanthocytes (Spur Cells) 1+ Schistocytes 1+ Prothrombin Time > 100.0 SEC (9.30-11.50) H Prothrombin Time INR > 10.0 (0.9-1.1) *H PTT 48 SEC (23-33) H Sodium Level 134 mEQ/L (135-145) L Potassium Level 4.3 mEQ/L (3.4-4.9) Chloride Level 89 mEQ/L (98-107) L Carbon Dioxide Level 23 mEQ/L (20-30) Anion Gap 22 (5-15) H Blood Urea Nitrogen 78 mg/dL (7-23) H Creatinine 4.5 mg/dL (0.7-1.2) H Estimate Glomerular Filtration Rate mL/min (>60) Glucose Level 139 mg/dL (74-106) H Calcium Level 7.3 mg/dL (8.6-10.2) L Phosphorus Level 5.5 mg/dL (2.5-4.8) H Magnesium Level 1.6 mg/dL (1.7-2.5) L Total Bilirubin 10.9 mg/dL (0.0-1.2) H Direct Bilirubin 7.2 mg/dL (0.1-0.3) H Aspartate Amino Transferase (AST) 3101 U/L (5-40) H Alanine Aminotransferase (ALT) 1076 U/L (3-41) H Alkaline Phosphatase 129 U/L (40-129) Total Protein 5.5 g/dL (6.6-8.7) L Albumin 2.9 g/dL (3.5-5.2) L Globulin 2.6 g/dL Albumin/Globulin Ratio 1.1 (1.0-2.7) Arterial Blood pH 7.440 (7.350-7.450) Arterial Blood Partial Pressure CO2 25.9 mmHg (35.0-45.0) L Arterial Blood Partial Pressure O2 184.3 mmHg (75.0-100.0) H Arterial Blood HCO3 17.4 mmol/L (22.0-26.0) L Arterial Blood Oxygen Saturation 99.5 % (92.0-98.0) H Arterial Blood Base Excess -4.9 Shawn Test Positive EKG Diagnostic Results Rate: tachycardiac Rhythm: other - a fib ST Segments: no acute changes Rhythm Strip Diag. Results EP Interpretation: yes Rhythm: other - a fib 128, PVC Chest X-Ray Diagnostic Results Chest X-Ray Diagnostic Results #1: Chest X-Ray Ordered: Yes # of Views/Limited/Complete: 1 View Indication: Other Interpretation: no pneumothorax, other - effusion, inc cor, infiltrates, pacer Electronically Signed by: Electronically signed by Akshat Huston MD Chest X-Ray Diagnostic Results #2: Chest X-Ray Ordered: Yes # of Views/Limited/Complete: 1 View Indication: Other - post intubation EP Interpretation: Yes Interpretation: other - L effusion, infiltrates, ET OK Impression: Other Electronically Signed by: Electronically signed by Akshat Huston MD Status: improved Disposition: ADMITTED INPATIENT Condition: Critical Akshat Huston M.D. Mar 19, 2017 21:36
[2017-03-19] MEDS ORDERED: Vancomycin 1 GM in D5W 275 ML IVPB ONE (22:15)
[2017-03-19] MEDS ORDERED: Cefepime HCl 1 GM in D5W 55 ML IVPB ONE (22:15)
[2017-03-19] MEDS ORDERED: Cefepime 1gm vial ONE (22:19)
[2017-03-19 22:23] LABS: MEAN CORPUSCULAR HEMOGLOBIN 34.5 PG (27.0-31.0); MEAN CORPUSCULAR HGB CONC 32.3 G/DL (32.0-36.0); MEAN CORPUSCULAR VOLUME 107 FL (80-99); MEAN PLATELET VOLUME 10.8 FL (6.5-10.1); PLATELET COUNT 148 K/UL (150-450); RED BLOOD COUNT 4.27 M/UL (4.70-6.10); RED CELL DISTRIBUTION WIDTH 15.5 % (11.6-14.8)
[2017-03-19 22:24] LABS: BASOPHILS % (AUTO) 0.3 % (0.0-2.0); LYMPHOCYTES % (AUTO) 1.8 % (20.0-45.0); MONOCYTES % (AUTO) 1.8 % (1.0-10.0); NEUTROPHILS % (AUTO) 96.1 % (45.0-75.0)
[2017-03-19 22:32] VITALS: BP 82/59
[2017-03-19 22:35] LABS: ACETAMINOPHEN < 10 ug/mL (10-30); ALANINE AMINOTRANSFERASE 679 U/L (3-41); ALBUMIN/GLOBULIN RATIO 1.2 (1.0-2.7); ALCOHOL < 10 mg/dL; ANION GAP 36 (5-15); CALCIUM 8.8 mg/dL (8.6-10.2); CARBON DIOXIDE 18 mEQ/L (20-30); CHLORIDE 80 mEQ/L (98-107); CREATININE 4.7 mg/dL (0.7-1.2); HEMOLYSIS 12; POTASSIUM 4.8 mEQ/L (3.4-4.9); SODIUM 134 mEQ/L (135-145); TOTAL PROTEIN 6.2 g/dL (6.6-8.7); TROPONIN I < 0.30 ng/mL (<=0.30)
[2017-03-19 22:39] LABS: AMMONIA 66 umol/L (16-60)
[2017-03-19] MEDS ORDERED: Nitroglycerin Subl 0.4mg tab (Bottle Of 25) SL PRN (22:45)
[2017-03-19] MEDS ORDERED: Mylanta II UD 30ml ORAL PRN (22:45)
[2017-03-19] MEDS ORDERED: LORazepam Inj 2mg/ml 1ml IV PRN (22:45)
[2017-03-19] MEDS ORDERED: DuoNeb 0.5-3(2.5)mg/3ml neb HHN PRN (22:45)
[2017-03-19] MEDS ORDERED: Miralax 17gm pkt ORAL PRN (22:45)
[2017-03-19 22:48] LABS: APPEARANCE,URINE CLEAR; KETONES,URINE NEGATIVE (NEGATIVE); LEUKOCYTE ESTERASE ,URINE 1+ (NEGATIVE); NITRITE,URINE POSITIVE (NEGATIVE); PH,URINE 5 (4.5-8.0); PROTEIN,URINE 4+ (NEGATIVE); UROBILINOGEN,URINE 8 MG/DL (0.0-1.0)
[2017-03-19 22:51] LABS: INR > 10.0 (0.9-1.1); PARTIAL THROMBOPLASTIN TIME 45 SEC (23-33); PROTHROMBIN TIME > 100.0 SEC (9.30-11.50)
[2017-03-19 22:55] LABS: ICTOTEST POSITIVE
[2017-03-19 22:58] LABS: RBC,URINE 0-2 /HPF (0 - 0)
[2017-03-19 22:59] LABS: AMORPHOUS SEDIMENT,UR MODERATE /LPF; BACTERIA,URINE MODERATE /HPF; SQUAMOUS EPITHELIAL CELL,UR OCCASIONAL /LPF (NONE/OCC); WBC,URINE 0-2 /HPF (0 - 0)
[2017-03-19] MEDS ORDERED: Midazolam for drip 50 MG in D5W 90 ML IV SCH (23:00)
[2017-03-19] MEDS ORDERED: D5NS 1,000 ML IV SCH (23:00)
[2017-03-19] MEDS ORDERED: Midazolam 2mg/2ml Inj IVP ONE (23:00)
[2017-03-19 23:05] LABS: REFLEX LACTIC ACID YES OR NO YES
[2017-03-19 23:17] LABS: BILIRUBIN,DIRECT 6.4 mg/dL (0.1-0.3)
[2017-03-19 23:30] LABS: ASPARTATE AMINO TRANSFERASE 1487 U/L (5-40)
[2017-03-19] MEDS ORDERED: Phytonadione 10 mg/mL 1ml amp ONE (23:42)
[2017-03-19 23:44] LABS: ABG ALLEN TEST POSITIVE; ABG BASE EXCESS -7.7; ABG PCO2 24.5 mmHg (35.0-45.0)
[2017-03-19] MEDS ORDERED: Phytonadione 10 MG in D5W 50 ML IVPB ONE (23:45)
[2017-03-20] VITALS (59 sets, daily range): BP systolic 65–109; BP diastolic 26–90
[2017-03-20] MEDS: D5NS 1,000 ML IV SCH ×6 (00:57→23:40)
[2017-03-20] MEDS ORDERED: Levophed 4mg/4mL Inj IV ONE (01:01)
[2017-03-20] MEDS ORDERED: Vancomycin 1gm inj IVPB ONE (01:44)
[2017-03-20] MEDS ORDERED: CITALOPRAM HBR10 M1 ORAL (03:41)
[2017-03-20] MEDS ORDERED: AMIODARONE HCL400 M1 ORAL (03:41)
[2017-03-20] MEDS ORDERED: VITAMIN K10 MG/ML IVPB (03:41)
[2017-03-20] MEDS ORDERED: TEMAZEPAM15 MG ORAL (03:41)
[2017-03-20] MEDS ORDERED: PAROXETINE HC12.5 MG ORAL (03:41)
[2017-03-20] MEDS ORDERED: Zosyn 3.375gm inj ONE (05:17)
[2017-03-20 05:33] LABS: MEAN CORPUSCULAR HEMOGLOBIN 34.7 PG (27.0-31.0); MEAN CORPUSCULAR HGB CONC 32.4 G/DL (32.0-36.0); MEAN CORPUSCULAR VOLUME 107 FL (80-99); MEAN PLATELET VOLUME 10.7 FL (6.5-10.1); PLATELET COUNT 150 K/UL (150-450); RED BLOOD COUNT 4.06 M/UL (4.70-6.10); RED CELL DISTRIBUTION WIDTH 15.2 % (11.6-14.8); WHITE BLOOD COUNT 12.1 K/UL (4.8-10.8)
[2017-03-20 05:38] LABS: ALBUMIN/GLOBULIN RATIO 1.1 (1.0-2.7); CALCIUM 7.3 mg/dL (8.6-10.2); CARBON DIOXIDE 23 mEQ/L (20-30); CHLORIDE 89 mEQ/L (98-107); CREATININE 4.5 mg/dL (0.7-1.2); HEMOLYSIS 7; MAGNESIUM 1.6 mg/dL (1.7-2.5); PHOSPHORUS 5.5 mg/dL (2.5-4.8); SODIUM 134 mEQ/L (135-145); TOTAL PROTEIN 5.5 g/dL (6.6-8.7)
[2017-03-20 06:06] LABS: ALANINE AMINOTRANSFERASE 1076 U/L (3-41); ASPARTATE AMINO TRANSFERASE 3101 U/L (5-40)
[2017-03-20 06:15] LABS: ANION GAP 22 (5-15); POTASSIUM 4.3 mEQ/L (3.4-4.9)
[2017-03-20 06:42] LABS: BILIRUBIN,DIRECT 7.2 mg/dL (0.1-0.3)
[2017-03-20 06:45] LABS: PROTHROMBIN TIME > 100.0 SEC (9.30-11.50)
[2017-03-20 06:47] LABS: INR > 10.0 (0.9-1.1); PARTIAL THROMBOPLASTIN TIME 48 SEC (23-33)
[2017-03-20] MEDS: Piperacillin/Tazobactam 3.375 GM in NS 110 ML IVPB SCH ×2 (07:30→17:32)
[2017-03-20] MEDS ORDERED: Heparin 5000 units/ml inj SUBQ SCH (09:00)
[2017-03-20] MEDS ORDERED: Amiodarone 200mg tab ORAL SCH (09:00)
[2017-03-20 09:44] LABS: BAND NEUTROPHILS % (MANUAL) 1 % (0-8); LYMPHOCYTES % (MANUAL) 3 % (20-45); NEUTROPHILS % (MANUAL) 86 % (45-75); PLATELET MORPHOLOGY NORMAL; TOTAL CELLS COUNTED 100
[2017-03-20 09:45] LABS: ACANTHOCYTES 1+; BASOPHILS % (MANUAL) 0 % (0-2); BURR CELLS 1+; EOSINOPHILS % (MANUAL) 0 % (0-3); MACROCYTES 1+; PLATELET ESTIMATE ADEQUATE; SCHISTOCYTES 1+
--- NOTE | 2017-03-20 10:30 | History and Physical ---
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 On arrival to ER, he was in respiratory failure and needed to be intubated. He was started on levophed drip and transferred to ICU. Currently he is obtunded, on respirator with fluctuating BP. Allergies: Coded Allergies: DIGOXIN (Unverified Allergy, Intermediate, KIDNEY DAMAGE, 09/14/14) CODEINE (Verified Allergy, Unknown, ITCHING, 05/15/12) Medication History Scheduled Alprazolam* (Xanax*), 0.25 MG ORAL DAILY, (Reported) Amiodarone Hcl* (Pacerone*), 200 MG ORAL BID, (Reported) Amiodarone Hcl* (Amiodarone Hcl*), 400 MG ORAL DAILY, (Reported) Aspirin* (Aspirin*), 81 MG ORAL DAILY, (Reported) Atorvastatin Calcium* (Lipitor*), Unknown Dose ORAL BEDTIME, (Reported) Bumetanide* (Bumetanide*), Unknown Dose ORAL DAILY, (Reported) Carvedilol (Coreg Cr), 20 MG * DAILY, (Reported) Citalopram Hydrobromide* (Citalopram Hbr*), 10 MG ORAL DAILY, (Reported) Doxycycline Monohydrate* (Doxycycline Monohydrate*), 100 MG ORAL Q12H Esomeprazole Magnesium (Nexium), 40 MG PO DAILY, (Reported) Fluticasone Propionate (Fluticasone Propionate), 1 SPRAY NASAL DAILY, (Reported) Magnesium Oxide (Magnesium Oxide), 400 MG ORAL BID, (Reported) Mexiletine HCl (Mexiletine HCl), 150 MG GT TID, (Reported) Paroxetine Hcl* (Paroxetine Hcl*), 20 MG ORAL DAILY, (Reported) Propafenone Hcl (Propafenone Hcl), 225 MG PO BID, (Reported) Temazepam (Temazepam*), 15 MG ORAL BEDTIME, (Reported) Zolpidem Tartrate* (Ambien*), 10 MG PO HS, (Reported) Miscellaneous Medications Phytonadione (Vitamin K1), 10 MG IVPB, (Reported) Phytonadione (Vitamin K1), 10 MG IVPB, (Reported) Warfarin Sod* (Warfarin Sod*), 3 MG PO, (Reported) Patient History Healthcare decision maker self Resuscitation status Full Code Advanced Directive on File No Past Medical/Surgical History Past Medical/Surgical History: (1) Liver failure (2) Coagulopathy (3) Severe protein-calorie malnutrition (4) EF 10% (5) End-stage systolic heart failure Review of Systems All Other Systems: negative except mentioned in HPI Physical Exam General Appearance: WD/WN Lines, tubes and drains: peripheral HEENT: normocephalic, atraumatic Neck: non-tender, normal alignment Respiratory/Chest: chest wall non-tender, lungs clear Cardiovascular/Chest: normal peripheral pulses, normal rate Abdomen: normal bowel sounds, non tender Genitourinary/Rectal: normal genital exam, heme negative stool Extremities: normal range of motion Last 24 Hour Vital Signs Date Time Temp Pulse Resp B/P (MAP) Pulse Ox O2 Delivery O2 Flow Rate FiO2 03/20/17 08:34 131 25 40 03/20/17 08:00 142 03/20/17 08:00 97.6 140 26 94/70 100 Mechanical Ventilator 40 03/20/17 08:00 94/70 03/20/17 08:00 26 03/20/17 08:00 4.0 40 03/20/17 07:30 25 03/20/17 07:26 72/54 03/20/17 07:20 138 23 40 03/20/17 06:30 135 28 88/65 99 Mechanical Ventilator 40 03/20/17 06:30 88/68 03/20/17 06:30 25 03/20/17 06:15 135 28 93/69 99 Mechanical Ventilator 40 03/20/17 06:00 134 28 81/50 99 Mechanical Ventilator 40 03/20/17 05:45 140 28 89/65 99 Mechanical Ventilator 40 03/20/17 05:30 140 31 90/74 100 Mechanical Ventilator 40 03/20/17 05:30 90/74 03/20/17 05:30 31 03/20/17 05:15 137 35 87/70 100 Mechanical Ventilator 40 03/20/17 05:03 134 26 35 03/20/17 05:00 135 27 100/74 100 Mechanical Ventilator 40 03/20/17 04:45 134 24 78/62 100 Mechanical Ventilator 40 03/20/17 04:30 4.0 40 03/20/17 04:30 78/62 03/20/17 04:30 24 03/20/17 04:30 97.9 136 24 82/60 100 Mechanical Ventilator 40 03/20/17 04:00 135 03/20/17 03:55 133 28 93/78 100 Mechanical Ventilator 4.0 40 03/20/17 03:41 133 28 93/78 100 Mechanical Ventilator 4.0 40 03/20/17 03:31 4.0 40 03/20/17 03:30 132 27 40 03/20/17 02:57 136 28 96/72 100 Mechanical Ventilator 50 03/20/17 02:47 31 03/20/17 02:32 31 03/20/17 02:17 91/64 03/20/17 02:16 90/69 03/20/17 02:11 91/70 03/20/17 02:06 93/77 03/20/17 02:01 106/65 03/20/17 01:56 92/76 03/20/17 01:42 133 22 87/68 100 Mechanical Ventilator 50 03/20/17 01:41 89/74 03/20/17 01:36 87/68 03/20/17 01:31 90/71 03/20/17 01:26 92/66 03/20/17 01:21 87/63 03/20/17 01:16 80/55 03/20/17 01:16 122 24 80/55 99 Mechanical Ventilator 4.0 50 03/20/17 01:11 79/57 03/20/17 00:58 132 21 50 03/19/17 23:08 119 32 Mechanical Ventilator 50 03/19/17 23:04 119 32 50 03/19/17 22:59 50 03/19/17 22:32 144 25 82/59 99 Nasal Cannula 4.0 03/19/17 20:29 100 14 130/69 99 Non-Rebreather 15.0 Intake and Output 03/20/17 03/21/17 19:00 07:00 Intake Total 152 ml Output Total 0 ml Balance 152 ml Intake Oral 0 ml IV Total 152 ml Output Urine Total 0 ml Laboratory Tests Test 03/19/17 22:10 03/19/17 22:17 03/19/17 23:05 03/19/17 23:38 White Blood Count 18.0 K/UL (4.8-10.8) H Red Blood Count 4.27 M/UL (4.70-6.10) L Hemoglobin 14.7 G/DL (14.2-18.0) Hematocrit 45.5 % (42.0-52.0) Mean Corpuscular Volume 107 FL (80-99) H Mean Corpuscular Hemoglobin 34.5 PG (27.0-31.0) H Mean Corpuscular Hemoglobin Concent 32.3 G/DL (32.0-36.0) Red Cell Distribution Width 15.5 % (11.6-14.8) H Platelet Count 148 K/UL (150-450) L Mean Platelet Volume 10.8 FL (6.5-10.1) H Neutrophils (%) (Auto) 96.1 % (45.0-75.0) H Lymphocytes (%) (Auto) 1.8 % (20.0-45.0) L Monocytes (%) (Auto) 1.8 % (1.0-10.0) Eosinophils (%) (Auto) 0.0 % (0.0-3.0) Basophils (%) (Auto) 0.3 % (0.0-2.0) Prothrombin Time > 100.0 SEC (9.30-11.50) H Prothromb Time International Ratio > 10.0 (0.9-1.1) *H Activated Partial Thromboplast Time 45 SEC (23-33) H Sodium Level 134 mEQ/L (135-145) L Potassium Level 4.8 mEQ/L (3.4-4.9) Chloride Level 80 mEQ/L (98-107) L Carbon Dioxide Level 18 mEQ/L (20-30) L Anion Gap 36 (5-15) H Blood Urea Nitrogen 77 mg/dL (7-23) H Creatinine 4.7 mg/dL (0.7-1.2) H Estimat Glomerular Filtration Rate mL/min (>60) Glucose Level 71 mg/dL (74-106) L Lactic Acid Level 12.40 mmol/L (0.66-2.22) H 9.50 mmol/L (0.66-2.22) H Calcium Level 8.8 mg/dL (8.6-10.2) Total Bilirubin 10.6 mg/dL (0.0-1.2) H Direct Bilirubin 6.4 mg/dL (0.1-0.3) H Aspartate Amino Transf (AST/SGOT) 1487 U/L (5-40) H Alanine Aminotransferase (ALT/SGPT) 679 U/L (3-41) H Alkaline Phosphatase 136 U/L (40-129) H Ammonia 66 umol/L (16-60) H Total Creatine Kinase 423 U/L (38-174) H Troponin I < 0.30 ng/mL (<=0.30) Pro-B-Type Natriuretic Peptide > 20944 pg/mL (0-450) H Total Protein 6.2 g/dL (6.6-8.7) L Albumin 3.4 g/dL (3.5-5.2) L Globulin 2.8 g/dL Albumin/Globulin Ratio 1.2 (1.0-2.7) Thyroid Stimulating Hormone (TSH) 1.450 uIU/mL (0.300-4.500) Salicylates Level < 1 mg/dL (10-30) L Acetaminophen Level < 10 ug/mL (10-30) L Serum Alcohol < 10 mg/dL Urine Color Brown Urine Appearance Clear Urine pH 5 (4.5-8.0) Urine Specific [place] 1.025 (1.005-1.035) Urine Protein 4+ (NEGATIVE) H Urine Glucose (UA) Negative (NEGATIVE) Urine Ketones Negative (NEGATIVE) Urine Occult Blood 4+ (NEGATIVE) H Urine Nitrite Positive (NEGATIVE) H Urine Bilirubin 2+ (NEGATIVE) H Urine Ictotest Positive Urine Urobilinogen 8 MG/DL (0.0-1.0) H Urine Leukocyte Esterase 1+ (NEGATIVE) H Urine RBC 0-2 /HPF (0 - 0) H Urine WBC 0-2 /HPF (0 - 0) Urine Squamous Epithelial Cells Occasional /LPF Urine Amorphous Sediment Moderate /LPF (NONE) H Urine Bacteria Moderate /HPF (NONE) H Arterial Blood pH 7.407 (7.350-7.450) Arterial Blood Partial Pressure CO2 24.5 mmHg (35.0-45.0) *L Arterial Blood Partial Pressure O2 246.2 mmHg (75.0-100.0) H Arterial Blood HCO3 15.1 mmol/L (22.0-26.0) L Arterial Blood Oxygen Saturation 99.6 % (92.0-98.0) H Arterial Blood Base Excess -7.7 Shawn Test Positive Test 03/20/17 04:45 White Blood Count 12.1 K/UL (4.8-10.8) H Red Blood Count 4.06 M/UL (4.70-6.10) L Hemoglobin 14.1 G/DL (14.2-18.0) L Hematocrit 43.4 % (42.0-52.0) Mean Corpuscular Volume 107 FL (80-99) H Mean Corpuscular Hemoglobin 34.7 PG (27.0-31.0) H Mean Corpuscular Hemoglobin Concent 32.4 G/DL (32.0-36.0) Red Cell Distribution Width 15.2 % (11.6-14.8) H Platelet Count 150 K/UL (150-450) Mean Platelet Volume 10.7 FL (6.5-10.1) H Neutrophils (%) (Auto) % (45.0-75.0) Lymphocytes (%) (Auto) % (20.0-45.0) Monocytes (%) (Auto) % (1.0-10.0) Eosinophils (%) (Auto) % (0.0-3.0) Basophils (%) (Auto) % (0.0-2.0) Differential Total Cells Counted 100 Neutrophils % (Manual) 86 % (45-75) H Lymphocytes % (Manual) 3 % (20-45) L Monocytes % (Manual) 10 % (1-10) Eosinophils % (Manual) 0 % (0-3) Basophils % (Manual) 0 % (0-2) Band Neutrophils 1 % (0-8) Platelet Estimate Adequate Platelet Morphology Normal Macrocytosis 1+ [place] Cells 1+ Acanthocytes 1+ Schistocytes 1+ Prothrombin Time > 100.0 SEC (9.30-11.50) H Prothromb Time International Ratio > 10.0 (0.9-1.1) *H Activated Partial Thromboplast Time 48 SEC (23-33) H Sodium Level 134 mEQ/L (135-145) L Potassium Level 4.3 mEQ/L (3.4-4.9) Chloride Level 89 mEQ/L (98-107) L Carbon Dioxide Level 23 mEQ/L (20-30) Anion Gap 22 (5-15) H Blood Urea Nitrogen 78 mg/dL (7-23) H Creatinine 4.5 mg/dL (0.7-1.2) H Estimat Glomerular Filtration Rate mL/min (>60) Glucose Level 139 mg/dL (74-106) H Calcium Level 7.3 mg/dL (8.6-10.2) L Phosphorus Level 5.5 mg/dL (2.5-4.8) H Magnesium Level 1.6 mg/dL (1.7-2.5) L Total Bilirubin 10.9 mg/dL (0.0-1.2) H Direct Bilirubin 7.2 mg/dL (0.1-0.3) H Aspartate Amino Transf (AST/SGOT) 3101 U/L (5-40) H Alanine Aminotransferase (ALT/SGPT) 1076 U/L (3-41) H Alkaline Phosphatase 129 U/L (40-129) Total Protein 5.5 g/dL (6.6-8.7) L Albumin 2.9 g/dL (3.5-5.2) L Globulin 2.6 g/dL Albumin/Globulin Ratio 1.1 (1.0-2.7) Height (Feet): 5 Height (Inches): 7.00 Weight (Pounds): 128 Medications Current Medications Medications (Trade) Dose Ordered Sig/Thong Route PRN Reason Start Time Stop Time Status Last Admin Dose Admin Acetaminophen (Tylenol) 650 mg Q4H PRN ORAL fever 03/19/17 22:45 04/18/17 22:44 Al Hydroxide/Mg Hydroxide (Mylanta II) 30 ml Q6H PRN ORAL dyspepsia 03/19/17 22:45 04/18/17 22:44 Albuterol/ Ipratropium (DuoNeb 0.5-3(2.5)mg/3ml) 3 ml Q4H PRN HHN Shortness of Breath 03/19/17 22:45 03/24/17 22:44 Amiodarone HCl (Cordarone) 200 mg BID@0900,2100 ORAL 03/20/17 09:00 04/19/17 08:59 Chlorhexidine Gluconate (Liane-Hex 2%) 1 applic QHS TOPIC 03/20/17 21:00 04/19/17 20:59 Clonidine HCl (Catapres) 0.1 mg Q4H PRN ORAL For High Blood Pressure 03/19/17 22:45 04/18/17 22:44 Dextrose (Dextrose 50%) STAT PRN IV Hypoglycemia 03/19/17 22:45 04/18/17 22:44 Dextrose/Sodium Chloride 1,000 ml @ 150 mls/hr Q6H40M IV 03/20/17 00:00 04/19/17 00:00 03/20/17 06:01 Lorazepam (Ativan 2mg/ml 1ml) 0.5 mg Q4H PRN IV For Anxiety 03/19/17 22:45 03/26/17 22:44 Midazolam HCl 50 mg/Dextrose 100 ml @ 0 mls/hr Q24H IV 03/19/17 23:00 04/18/17 22:59 03/20/17 02:32 Nitroglycerin (Ntg) 0.4 mg Q5M X 3 DOSES PRN SL Prn Chest Pain 03/19/17 22:45 04/18/17 22:44 Norepinephrine Bitartrate 4 mg/ Dextrose 250 ml @ 0 mls/hr Q24H IV 03/19/17 23:45 04/18/17 23:44 03/20/17 07:26 Ondansetron HCl (Zofran) 4 mg Q6H PRN IVP Nausea & Vomiting 03/19/17 22:45 04/18/17 22:44 Piperacillin Sod/ Tazobactam Sod 3.375 gm/Sodium Chloride 110 ml @ 27.5 mls/hr Q12H IVPB 03/20/17 06:00 03/27/17 05:59 Polyethylene Glycol (Miralax) 17 gm HSPRN PRN ORAL Constipation 03/19/17 22:45 04/18/17 22:44 Temazepam (Restoril) 15 mg HSPRN PRN ORAL Insomnia 03/19/17 22:45 03/26/17 22:44 Assessment/Plan Problem List: (1) Acute respiratory failure ICD Codes: J96.00 - Acute respiratory failure, unspecified whether with hypoxia or hypercapnia SNOMED: 17289506 (2) Acute end-stage systolic heart failure ICD Codes: I50.21 - Acute systolic (congestive) heart failure SNOMED: 834691338, 755288047933799 (3) EF 10% (4) Severe sepsis ICD Codes: A41.9 - Sepsis, unspecified organism; R65.20 - Severe sepsis without septic shock SNOMED: 26178089 (5) Coagulopathy ICD Codes: D68.9 - Coagulation defect, unspecified SNOMED: 76732566 Assessment/Plan d/w pt's daughter, she wants comfort care at this point. We make him DNR and stop the levophed. IDALIA WALLS Mar 20, 2017 10:30
[2017-03-20 10:32] LABS: ABG ALLEN TEST POSITIVE; ABG BASE EXCESS -4.9; ABG PCO2 25.9 mmHg (35.0-45.0)
[2017-03-20] MEDS ORDERED: LORazepam Inj 2mg/ml 1ml IV PRN (11:00)
--- NOTE | 2017-03-20 11:14 | Diagnostic Imaging Report ---
Indication: Intubation Comparison: 03/19/17 at 21:07 A single view chest radiograph was obtained. Findings: Endotracheal tube is 2 cm above the amelia. Heart is enlarged. Interstitial edema is suspected and mild in degree. Impression: Endotracheal tube in good position
--- NOTE | 2017-03-20 11:17 | Diagnostic Imaging Report ---
Indication: Dyspnea Comparison: 03/07/17 A single view chest radiograph was obtained. Findings: Heart is enlarged. Lungs are essentially clear. Prominent vascularity is mildly prominent. Pacemaker again noted. Impression: No significant change
[2017-03-20 18:55] LABS: REFLEX LACTIC ACID YES OR NO YES
--- NOTE | 2017-03-20 20:38 | Cardiology Progress Note ---
Assessment/Plan Assessment/Plan septic shock paf tachy arf hepetitis end stage cm chf chronic endstage icd hs dc amiod adn statin in light of liver function ab prognosis overall is poor hospice may be appropriate for nwo pressor vent support iv abx [id number] Objective Last 24 Hour Vital Signs Date Time Temp Pulse Resp B/P (MAP) Pulse Ox O2 Delivery O2 Flow Rate FiO2 03/20/17 20:00 30 03/20/17 19:01 148 31 30 03/20/17 18:00 101/62 03/20/17 18:00 143 28 101/62 99 Mechanical Ventilator 40 03/20/17 17:30 139 28 86/42 99 Mechanical Ventilator 40 03/20/17 17:23 81/66 03/20/17 17:00 145 28 81/66 99 Mechanical Ventilator 40 03/20/17 16:53 133 29 30 03/20/17 16:30 149 28 87/65 99 Mechanical Ventilator 40 03/20/17 16:00 98.7 146 28 78/59 99 Mechanical Ventilator 40 03/20/17 16:00 140 03/20/17 16:00 30 03/20/17 15:30 144 28 83/42 99 Mechanical Ventilator 40 03/20/17 15:00 143 28 78/53 99 Mechanical Ventilator 40 03/20/17 15:00 78/53 03/20/17 14:45 141 23 30 03/20/17 14:30 139 28 79/42 99 Mechanical Ventilator 40 03/20/17 14:00 138 28 98/57 99 Mechanical Ventilator 40 03/20/17 14:00 98/57 03/20/17 13:30 134 28 107/90 99 Mechanical Ventilator 40 03/20/17 13:18 136 28 30 03/20/17 13:00 141 28 81/33 99 Mechanical Ventilator 40 03/20/17 13:00 81/33 03/20/17 12:30 142 28 89/72 99 Mechanical Ventilator 40 03/20/17 12:00 30 03/20/17 12:00 146 03/20/17 12:00 93/67 03/20/17 12:00 98.7 134 28 88/68 99 Mechanical Ventilator 30 03/20/17 11:30 134 28 99/67 99 Mechanical Ventilator 40 03/20/17 11:00 135 28 88/32 99 Mechanical Ventilator 40 03/20/17 11:00 88/40 03/20/17 10:36 134 27 30 03/20/17 10:30 137 28 81/65 99 Mechanical Ventilator 40 03/20/17 10:00 30 03/20/17 10:00 135 25 81/61 99 Mechanical Ventilator 40 03/20/17 10:00 96/60 03/20/17 10:00 23 03/20/17 09:30 135 26 78/38 99 Mechanical Ventilator 40 03/20/17 09:00 138 26 65/26 99 Mechanical Ventilator 30 03/20/17 09:00 90/60 03/20/17 09:00 23 03/20/17 08:34 131 25 40 03/20/17 08:30 137 26 97/73 99 Mechanical Ventilator 40 03/20/17 08:00 142 03/20/17 08:00 97.6 140 26 94/70 100 Mechanical Ventilator 40 03/20/17 08:00 94/70 03/20/17 08:00 26 03/20/17 08:00 40 03/20/17 07:30 138 26 109/86 99 Mechanical Ventilator 40 03/20/17 07:30 25 03/20/17 07:26 72/54 03/20/17 07:20 138 23 40 03/20/17 07:00 138 28 84/69 99 Mechanical Ventilator 40 03/20/17 06:30 135 28 88/65 99 Mechanical Ventilator 40 03/20/17 06:30 88/68 03/20/17 06:30 25 03/20/17 06:15 135 28 93/69 99 Mechanical Ventilator 40 03/20/17 06:00 134 28 81/50 99 Mechanical Ventilator 40 03/20/17 05:45 140 28 89/65 99 Mechanical Ventilator 40 03/20/17 05:30 140 31 90/74 100 Mechanical Ventilator 40 03/20/17 05:30 90/74 03/20/17 05:30 31 03/20/17 05:15 137 35 87/70 100 Mechanical Ventilator 40 03/20/17 05:03 134 26 35 03/20/17 05:00 135 27 100/74 100 Mechanical Ventilator 40 03/20/17 04:45 134 24 78/62 100 Mechanical Ventilator 40 03/20/17 04:30 4.0 40 03/20/17 04:30 78/62 03/20/17 04:30 24 9/14/17 04:30 97.9 136 24 82/60 100 Mechanical Ventilator 40 03/20/17 04:00 135 03/20/17 03:55 133 28 93/78 100 Mechanical Ventilator 4.0 40 03/20/17 03:41 133 28 93/78 100 Mechanical Ventilator 4.0 40 03/20/17 03:31 4.0 40 03/20/17 03:30 132 27 40 03/20/17 02:57 136 28 96/72 100 Mechanical Ventilator 50 03/20/17 02:47 31 03/20/17 02:32 31 03/20/17 02:17 91/64 03/20/17 02:16 90/69 03/20/17 02:11 91/70 03/20/17 02:06 93/77 03/20/17 02:01 106/65 03/20/17 01:56 92/76 03/20/17 01:42 133 22 87/68 100 Mechanical Ventilator 50 03/20/17 01:41 89/74 03/20/17 01:36 87/68 03/20/17 01:31 90/71 03/20/17 01:26 92/66 03/20/17 01:21 87/63 03/20/17 01:16 80/55 03/20/17 01:16 122 24 80/55 99 Mechanical Ventilator 4.0 50 03/20/17 01:11 79/57 03/20/17 00:58 132 21 50 03/19/17 23:08 119 32 Mechanical Ventilator 50 03/19/17 23:04 119 32 50 03/19/17 22:59 50 03/19/17 22:32 144 25 82/59 99 Nasal Cannula 4.0 Intake and Output 03/20/17 03/21/17 19:00 07:00 Intake Total 1606 ml 237.5 ml Output Total 0 ml 0 ml Balance 1606 ml 237.5 ml Intake Oral 0 ml 0 ml IV Total 1606 ml 237.5 ml Output Urine Total 0 ml 0 ml Laboratory Tests Test 03/19/17 22:10 03/19/17 22:17 03/19/17 23:05 03/19/17 23:38 White Blood Count 18.0 K/UL (4.8-10.8) H Red Blood Count 4.27 M/UL (4.70-6.10) L Hemoglobin 14.7 G/DL (14.2-18.0) Hematocrit 45.5 % (42.0-52.0) Mean Corpuscular Volume 107 FL (80-99) H Mean Corpuscular Hemoglobin 34.5 PG (27.0-31.0) H Mean Corpuscular Hemoglobin Concent 32.3 G/DL (32.0-36.0) Red Cell Distribution Width 15.5 % (11.6-14.8) H Platelet Count 148 K/UL (150-450) L Mean Platelet Volume 10.8 FL (6.5-10.1) H Neutrophils (%) (Auto) 96.1 % (45.0-75.0) H Lymphocytes (%) (Auto) 1.8 % (20.0-45.0) L Monocytes (%) (Auto) 1.8 % (1.0-10.0) Eosinophils (%) (Auto) 0.0 % (0.0-3.0) Basophils (%) (Auto) 0.3 % (0.0-2.0) Prothrombin Time > 100.0 SEC (9.30-11.50) H Prothromb Time International Ratio > 10.0 (0.9-1.1) *H Activated Partial Thromboplast Time 45 SEC (23-33) H Sodium Level 134 mEQ/L (135-145) L Potassium Level 4.8 mEQ/L (3.4-4.9) Chloride Level 80 mEQ/L (98-107) L Carbon Dioxide Level 18 mEQ/L (20-30) L Anion Gap 36 (5-15) H Blood Urea Nitrogen 77 mg/dL (7-23) H Creatinine 4.7 mg/dL (0.7-1.2) H Estimat Glomerular Filtration Rate mL/min (>60) Glucose Level 71 mg/dL (74-106) L Lactic Acid Level 12.40 mmol/L (0.66-2.22) H 9.50 mmol/L (0.66-2.22) H Calcium Level 8.8 mg/dL (8.6-10.2) Total Bilirubin 10.6 mg/dL (0.0-1.2) H Direct Bilirubin 6.4 mg/dL (0.1-0.3) H Aspartate Amino Transf (AST/SGOT) 1487 U/L (5-40) H Alanine Aminotransferase (ALT/SGPT) 679 U/L (3-41) H Alkaline Phosphatase 136 U/L (40-129) H Ammonia 66 umol/L (16-60) H Total Creatine Kinase 423 U/L (38-174) H Troponin I < 0.30 ng/mL (<=0.30) Pro-B-Type Natriuretic Peptide > 62594 pg/mL (0-450) H Total Protein 6.2 g/dL (6.6-8.7) L Albumin 3.4 g/dL (3.5-5.2) L Globulin 2.8 g/dL Albumin/Globulin Ratio 1.2 (1.0-2.7) Thyroid Stimulating Hormone (TSH) 1.450 uIU/mL (0.300-4.500) Salicylates Level < 1 mg/dL (10-30) L Acetaminophen Level < 10 ug/mL (10-30) L Serum Alcohol < 10 mg/dL Urine Color Brown Urine Appearance Clear Urine pH 5 (4.5-8.0) Urine Specific [place] 1.025 (1.005-1.035) Urine Protein 4+ (NEGATIVE) H Urine Glucose (UA) Negative (NEGATIVE) Urine Ketones Negative (NEGATIVE) Urine Occult Blood 4+ (NEGATIVE) H Urine Nitrite Positive (NEGATIVE) H Urine Bilirubin 2+ (NEGATIVE) H Urine Ictotest Positive Urine Urobilinogen 8 MG/DL (0.0-1.0) H Urine Leukocyte Esterase 1+ (NEGATIVE) H Urine RBC 0-2 /HPF (0 - 0) H Urine WBC 0-2 /HPF (0 - 0) Urine Squamous Epithelial Cells Occasional /LPF Urine Amorphous Sediment Moderate /LPF (NONE) H Urine Bacteria Moderate /HPF (NONE) H Arterial Blood pH 7.407 (7.350-7.450) Arterial Blood Partial Pressure CO2 24.5 mmHg (35.0-45.0) *L Arterial Blood Partial Pressure O2 246.2 mmHg (75.0-100.0) H Arterial Blood HCO3 15.1 mmol/L (22.0-26.0) L Arterial Blood Oxygen Saturation 99.6 % (92.0-98.0) H Arterial Blood Base Excess -7.7 Shawn Test Positive Test 03/20/17 04:45 03/20/17 10:20 03/20/17 18:00 White Blood Count 12.1 K/UL (4.8-10.8) H Red Blood Count 4.06 M/UL (4.70-6.10) L Hemoglobin 14.1 G/DL (14.2-18.0) L Hematocrit 43.4 % (42.0-52.0) Mean Corpuscular Volume 107 FL (80-99) H Mean Corpuscular Hemoglobin 34.7 PG (27.0-31.0) H Mean Corpuscular Hemoglobin Concent 32.4 G/DL (32.0-36.0) Red Cell Distribution Width 15.2 % (11.6-14.8) H Platelet Count 150 K/UL (150-450) Mean Platelet Volume 10.7 FL (6.5-10.1) H Neutrophils (%) (Auto) % (45.0-75.0) Lymphocytes (%) (Auto) % (20.0-45.0) Monocytes (%) (Auto) % (1.0-10.0) Eosinophils (%) (Auto) % (0.0-3.0) Basophils (%) (Auto) % (0.0-2.0) Differential Total Cells Counted 100 Neutrophils % (Manual) 86 % (45-75) H Lymphocytes % (Manual) 3 % (20-45) L Monocytes % (Manual) 10 % (1-10) Eosinophils % (Manual) 0 % (0-3) Basophils % (Manual) 0 % (0-2) Band Neutrophils 1 % (0-8) Platelet Estimate Adequate Platelet Morphology Normal Macrocytosis 1+ [place] Cells 1+ Acanthocytes 1+ Schistocytes 1+ Prothrombin Time > 100.0 SEC (9.30-11.50) H Prothromb Time International Ratio > 10.0 (0.9-1.1) *H Activated Partial Thromboplast Time 48 SEC (23-33) H Sodium Level 134 mEQ/L (135-145) L Potassium Level 4.3 mEQ/L (3.4-4.9) Chloride Level 89 mEQ/L (98-107) L Carbon Dioxide Level 23 mEQ/L (20-30) Anion Gap 22 (5-15) H Blood Urea Nitrogen 78 mg/dL (7-23) H Creatinine 4.5 mg/dL (0.7-1.2) H Estimat Glomerular Filtration Rate mL/min (>60) Glucose Level 139 mg/dL (74-106) H Calcium Level 7.3 mg/dL (8.6-10.2) L Phosphorus Level 5.5 mg/dL (2.5-4.8) H Magnesium Level 1.6 mg/dL (1.7-2.5) L Total Bilirubin 10.9 mg/dL (0.0-1.2) H Direct Bilirubin 7.2 mg/dL (0.1-0.3) H Aspartate Amino Transf (AST/SGOT) 3101 U/L (5-40) H Alanine Aminotransferase (ALT/SGPT) 1076 U/L (3-41) H Alkaline Phosphatase 129 U/L (40-129) Total Protein 5.5 g/dL (6.6-8.7) L Albumin 2.9 g/dL (3.5-5.2) L Globulin 2.6 g/dL Albumin/Globulin Ratio 1.1 (1.0-2.7) Arterial Blood pH 7.440 (7.350-7.450) Arterial Blood Partial Pressure CO2 25.9 mmHg (35.0-45.0) L Arterial Blood Partial Pressure O2 184.3 mmHg (75.0-100.0) H Arterial Blood HCO3 17.4 mmol/L (22.0-26.0) L Arterial Blood Oxygen Saturation 99.5 % (92.0-98.0) H Arterial Blood Base Excess -4.9 Shawn Test Positive Lactic Acid Level 8.80 mmol/L (0.66-2.22) H MELANIE RIVAS Mar 20, 2017 20:38
[2017-03-20] MEDS: Dyna-Hex 2% Top Sol 8oz TOPIC SCH (21:11)
[2017-03-21] VITALS (70 sets, daily range): BP systolic 41–122; BP diastolic 10–93
[2017-03-21 05:20] LABS: MEAN CORPUSCULAR HGB CONC 33.8 G/DL (32.0-36.0); MEAN CORPUSCULAR VOLUME 107 FL (80-99); MEAN PLATELET VOLUME 10.8 FL (6.5-10.1); PLATELET COUNT 112 K/UL (150-450); RED BLOOD COUNT 3.73 M/UL (4.70-6.10); RED CELL DISTRIBUTION WIDTH 15.7 % (11.6-14.8); WHITE BLOOD COUNT 10.8 K/UL (4.8-10.8)
[2017-03-21] MEDS: Piperacillin/Tazobactam 3.375 GM in NS 110 ML IVPB SCH ×2 (05:32→17:25)
[2017-03-21 05:43] LABS: ANION GAP 22 (5-15); CALCIUM 6.4 mg/dL (8.6-10.2); CARBON DIOXIDE 16 mEQ/L (20-30); CHLORIDE 90 mEQ/L (98-107); CREATININE 5.7 mg/dL (0.7-1.2); HEMOLYSIS 11; MAGNESIUM 1.6 mg/dL (1.7-2.5); PHOSPHORUS 5.5 mg/dL (2.5-4.8); POTASSIUM 5.5 mEQ/L (3.4-4.9); SODIUM 128 mEQ/L (135-145); TOTAL PROTEIN 4.7 g/dL (6.6-8.7)
[2017-03-21] MEDS: D5NS 1,000 ML IV SCH ×3 (06:00→17:46)
[2017-03-21 06:05] LABS: ASPARTATE AMINO TRANSFERASE 6673 U/L (5-40)
[2017-03-21 06:16] LABS: ALANINE AMINOTRANSFERASE 2126 U/L (3-41)
[2017-03-21 06:59] LABS: BILIRUBIN,DIRECT 10.7 mg/dL (0.1-0.3)
[2017-03-21] MEDS ORDERED: NS 275ml ONE (09:11)
[2017-03-21] MEDS ORDERED: D5NS 1000ml IV ONE (09:11)
[2017-03-21] MEDS ORDERED: Tubing Blood Filter IV ONE (09:11)
--- NOTE | 2017-03-21 09:49 | Diagnostic Imaging Report ---
Indication: DYSPNEA Technique: One view of the chest Comparison: 03/19/2017 Findings: Again demonstrated is a right chest AICD with and epicardial lead. The heart is enlarged. Stable satisfactory position of endotracheal tube. Equivocal mild interstitial congestion is unchanged. No new infiltrates Impression: Unchanged, over one day, findings as above.
[2017-03-21 09:50] LABS: BAND NEUTROPHILS % (MANUAL) 16 % (0-8); LYMPHOCYTES % (MANUAL) 7 % (20-45); METAMYELOCYTES % 1 % (0-0); NEUTROPHILS % (MANUAL) 69 % (45-75); TOTAL CELLS COUNTED 100
[2017-03-21 09:51] LABS: BASOPHILS % (MANUAL) 0 % (0-2); BURR CELLS 1+; EOSINOPHILS % (MANUAL) 0 % (0-3); MACROCYTES 1+; PLATELET ESTIMATE DECREASED; PLATELET MORPHOLOGY NORMAL
[2017-03-21 09:53] LABS: ANISOCYTOSIS 1+
--- NOTE | 2017-03-21 10:20 | Pulmonolgy Critical Care Note ---
Critical Care - Asmt/Plan Problems: (1) Acute respiratory failure (2) Renal failure (3) Acute end-stage systolic heart failure (4) Liver failure (5) EF 10% (6) Severe protein-calorie malnutrition Respiratory: monitor respiratory rate, adjust FIO2 Cardiac: continue pressors - do not add any pressors, continue to monitor HR/BP Renal: F/U I&O, keep IV fluid Gastrointestinal: hold feedings Endocrine: monitor blood sugar Hematologic: monitor H/H Neurologic: PRN Ativan, PRN Morphine Affect: PRN ativan Prophylaxis: Protonix Disposition: keep in ICU Notes Reviewed: cardio Discussed with: nurses, consultants Critical Care - Objective Last 24 Hour Vital Signs Date Time Temp Pulse Resp B/P (MAP) Pulse Ox O2 Delivery O2 Flow Rate FiO2 03/21/17 10:00 122 38 86/67 98 Mechanical Ventilator 30 03/21/17 09:45 128 40 68/40 98 Mechanical Ventilator 30 03/21/17 09:30 125 34 71/41 97 Mechanical Ventilator 30 03/21/17 09:25 119 35 30 03/21/17 09:15 127 35 61/51 100 Mechanical Ventilator 30 03/21/17 09:00 126 47 68/46 98 Mechanical Ventilator 30 03/21/17 08:45 127 31 71/51 98 Mechanical Ventilator 30 03/21/17 08:30 126 47 60/45 98 Mechanical Ventilator 30 03/21/17 08:15 124 42 83/59 98 Mechanical Ventilator 30 03/21/17 08:13 70/55 03/21/17 08:00 99.0 120 41 72/51 99 Mechanical Ventilator 30 03/21/17 08:00 122 03/21/17 08:00 30 03/21/17 07:45 123 34 70/55 98 Mechanical Ventilator 30 03/21/17 07:30 127 35 61/51 100 Mechanical Ventilator 30 03/21/17 07:15 128 34 75/60 100 Mechanical Ventilator 30 03/21/17 07:00 79/61 03/21/17 07:00 128 28 68/22 100 Mechanical Ventilator 40 03/21/17 06:48 123 33 30 03/21/17 06:45 134 28 79/61 100 Mechanical Ventilator 40 03/21/17 06:30 134 28 77/34 100 Mechanical Ventilator 40 03/21/17 06:15 130 33 72/36 100 Mechanical Ventilator 40 03/21/17 06:00 52/17 03/21/17 06:00 131 32 57/17 100 Mechanical Ventilator 40 03/21/17 05:45 142 30 76/32 100 Mechanical Ventilator 40 03/21/17 05:32 51/10 03/21/17 05:30 98.9 140 32 47/32 100 Mechanical Ventilator 40 03/21/17 05:15 142 30 51/10 100 Mechanical Ventilator 40 03/21/17 05:11 140 31 30 03/21/17 05:00 99.0 140 30 90/61 99 Mechanical Ventilator 40 03/21/17 05:00 90/61 03/21/17 04:45 140 30 60/41 99 Mechanical Ventilator 40 03/21/17 04:30 143 30 58/30 99 Mechanical Ventilator 40 03/21/17 04:15 142 30 80/65 99 Mechanical Ventilator 40 03/21/17 04:00 146 03/21/17 04:00 100.1 142 30 64/39 99 Mechanical Ventilator 40 03/21/17 04:00 30 03/21/17 04:00 68/42 03/21/17 03:45 142 30 64/39 99 Mechanical Ventilator 40 03/21/17 03:30 135 30 76/49 99 Mechanical Ventilator 40 03/21/17 03:15 138 30 74/47 99 Mechanical Ventilator 40 03/21/17 03:10 139 37 30 03/21/17 03:00 74/46 03/21/17 03:00 139 28 68/55 98 Mechanical Ventilator 40 03/21/17 02:48 87/53 03/21/17 02:45 139 28 76/49 98 Mechanical Ventilator 40 03/21/17 02:30 143 28 87/52 98 Mechanical Ventilator 40 03/21/17 02:15 142 28 81/38 98 Mechanical Ventilator 40 03/21/17 02:00 143 28 80/60 98 Mechanical Ventilator 40 03/21/17 02:00 41/24 03/21/17 01:45 150 28 41/24 98 Mechanical Ventilator 40 03/21/17 01:30 150 28 54/40 98 Mechanical Ventilator 40 03/21/17 01:15 152 28 74/60 98 Mechanical Ventilator 40 03/21/17 01:11 153 36 30 03/21/17 01:00 68/55 03/21/17 01:00 152 28 68/55 98 Mechanical Ventilator 40 03/21/17 00:45 151 28 56/22 98 Mechanical Ventilator 40 03/21/17 00:30 150 28 57/13 98 Mechanical Ventilator 40 03/21/17 00:19 64/41 03/21/17 00:15 147 28 81/64 98 Mechanical Ventilator 40 03/21/17 00:00 30 03/21/17 00:00 152 03/21/17 00:00 99.5 147 28 68/36 98 Mechanical Ventilator 40 03/20/17 23:45 147 28 79/64 98 Mechanical Ventilator 40 03/20/17 23:30 143 28 96/66 98 Mechanical Ventilator 40 03/20/17 23:15 149 32 74/59 98 Mechanical Ventilator 40 03/20/17 23:14 148 33 30 03/20/17 23:00 149 32 80/53 98 Mechanical Ventilator 40 03/20/17 23:00 80/56 03/20/17 22:45 144 32 80/56 98 Mechanical Ventilator 40 03/20/17 22:30 147 32 85/61 98 Mechanical Ventilator 40 03/20/17 22:15 149 28 92/66 99 Mechanical Ventilator 40 03/20/17 22:00 81/63 03/20/17 21:59 155 28 81/63 99 Mechanical Ventilator 40 03/20/17 21:45 149 28 69/45 99 Mechanical Ventilator 40 03/20/17 21:30 148 28 78/56 99 Mechanical Ventilator 40 03/20/17 21:17 157 29 30 03/20/17 21:15 147 28 70/45 99 Mechanical Ventilator 40 03/20/17 21:00 143 28 82/68 99 Mechanical Ventilator 40 03/20/17 21:00 82/68 03/20/17 20:45 143 28 83/61 99 Mechanical Ventilator 40 03/20/17 20:37 80/41 03/20/17 20:30 143 28 66/51 99 Mechanical Ventilator 40 03/20/17 20:15 143 28 81/62 99 Mechanical Ventilator 40 03/20/17 20:00 30 03/20/17 20:00 136 03/20/17 20:00 98.9 143 28 79/39 99 Mechanical Ventilator 40 03/20/17 19:45 143 28 79/39 99 Mechanical Ventilator 40 03/20/17 19:30 143 28 83/60 99 Mechanical Ventilator 40 03/20/17 19:15 143 28 78/62 99 Mechanical Ventilator 40 03/20/17 19:01 148 31 30 03/20/17 19:00 143 28 91/70 99 Mechanical Ventilator 40 03/20/17 18:45 143 28 81/59 99 Mechanical Ventilator 40 03/20/17 18:30 144 28 87/57 99 Mechanical Ventilator 40 03/20/17 18:15 144 28 89/68 99 Mechanical Ventilator 40 03/20/17 18:00 101/62 03/20/17 18:00 143 28 101/62 99 Mechanical Ventilator 40 03/20/17 17:30 139 28 86/42 99 Mechanical Ventilator 40 03/20/17 17:23 81/66 03/20/17 17:00 145 28 81/66 99 Mechanical Ventilator 40 03/20/17 16:53 133 29 30 03/20/17 16:30 149 28 87/65 99 Mechanical Ventilator 40 03/20/17 16:00 98.7 146 28 78/59 99 Mechanical Ventilator 40 03/20/17 16:00 140 03/20/17 16:00 30 03/20/17 15:30 144 28 83/42 99 Mechanical Ventilator 40 03/20/17 15:00 143 28 78/53 99 Mechanical Ventilator 40 03/20/17 15:00 78/53 03/20/17 14:45 141 23 30 03/20/17 14:30 139 28 79/42 99 Mechanical Ventilator 40 03/20/17 14:00 138 28 98/57 99 Mechanical Ventilator 40 03/20/17 14:00 98/57 03/20/17 13:30 134 28 107/90 99 Mechanical Ventilator 40 03/20/17 13:18 136 28 30 03/20/17 13:00 141 28 81/33 99 Mechanical Ventilator 40 03/20/17 13:00 81/33 03/20/17 12:30 142 28 89/72 99 Mechanical Ventilator 40 03/20/17 12:00 30 03/20/17 12:00 146 03/20/17 12:00 93/67 03/20/17 12:00 98.7 134 28 88/68 99 Mechanical Ventilator 30 03/20/17 11:30 134 28 99/67 99 Mechanical Ventilator 40 03/20/17 11:00 135 28 88/32 99 Mechanical Ventilator 40 9/14/17 11:00 88/40 03/20/17 10:36 134 27 30 03/20/17 10:30 137 28 81/65 99 Mechanical Ventilator 40 Status: awake Condition: critical HEENT: atraumatic Neck: full ROM Lungs: chest wall tender Heart: HR/BP stable, HR/BP unstable Abdomen: soft, non-tender, feeding tube Extremities: no C/C/E Decubiti: location Micro: Microbiology Date/Time Source Procedure Growth Status 03/19/17 23:20 Blood Blood Culture - Preliminary NO GROWTH AFTER 24 HOURS Resulted 03/19/17 23:05 Blood Blood Culture - Preliminary NO GROWTH AFTER 24 HOURS Resulted 03/19/17 22:17 Urine,Clean Catch Urine Culture - Preliminary NO GROWTH AFTER 24 HOURS Resulted Accucheck: 81 Critical Care - Subjective ROS Limited/Unobtainable: Yes ICU Day: 2 Intubation Day: 2 Condition: critical EKG Rhythm: V-Paced FI02: 30 Vent Support Breath Rate: 18 Vent Support Mode: AC Vent Tidal Volume: 500 Sputum Amount: Scant PIP: 35 Fluids: d5 ns 150 cc/hour Drips: levophed I&O: Intake and Output 03/21/17 03/22/17 19:00 07:00 Intake Total 355.0 ml Output Total 0 ml Balance 355.0 ml Intake Oral 0 ml IV Total 355.0 ml Output Urine Total 0 ml CXR: no change, ET in good position ET-Tube: 7.5 ET Position: 24 Labs: Laboratory Tests Test 03/20/17 10:20 03/20/17 18:00 03/20/17 21:30 03/21/17 04:50 Arterial Blood pH 7.440 (7.350-7.450) Arterial Blood Partial Pressure CO2 25.9 mmHg (35.0-45.0) L Arterial Blood Partial Pressure O2 184.3 mmHg (75.0-100.0) H Arterial Blood HCO3 17.4 mmol/L (22.0-26.0) L Arterial Blood Oxygen Saturation 99.5 % (92.0-98.0) H Arterial Blood Base Excess -4.9 Shawn Test Positive Lactic Acid Level 8.80 mmol/L (0.66-2.22) H 4.80 mmol/L (0.66-2.22) H White Blood Count 10.8 K/UL (4.8-10.8) Red Blood Count 3.73 M/UL (4.70-6.10) L Hemoglobin 13.4 G/DL (14.2-18.0) L Hematocrit 39.7 % (42.0-52.0) L Mean Corpuscular Volume 107 FL (80-99) H Mean Corpuscular Hemoglobin 36.0 PG (27.0-31.0) H Mean Corpuscular Hemoglobin Concent 33.8 G/DL (32.0-36.0) Red Cell Distribution Width 15.7 % (11.6-14.8) H Platelet Count 112 K/UL (150-450) L Mean Platelet Volume 10.8 FL (6.5-10.1) H Neutrophils (%) (Auto) % (45.0-75.0) Lymphocytes (%) (Auto) % (20.0-45.0) Monocytes (%) (Auto) % (1.0-10.0) Eosinophils (%) (Auto) % (0.0-3.0) Basophils (%) (Auto) % (0.0-2.0) Differential Total Cells Counted 100 Neutrophils % (Manual) 69 % (45-75) Lymphocytes % (Manual) 7 % (20-45) L Monocytes % (Manual) 7 % (1-10) Eosinophils % (Manual) 0 % (0-3) Basophils % (Manual) 0 % (0-2) Metamyelocytes % 1 % (0-0) H Band Neutrophils 16 % (0-8) H Platelet Estimate Decreased L Platelet Morphology Normal Anisocytosis 1+ Macrocytosis 1+ Railroad Cells 1+ Sodium Level 128 mEQ/L (135-145) L Potassium Level 5.5 mEQ/L (3.4-4.9) H Chloride Level 90 mEQ/L (98-107) L Carbon Dioxide Level 16 mEQ/L (20-30) L Anion Gap 22 (5-15) H Blood Urea Nitrogen 83 mg/dL (7-23) H Creatinine 5.7 mg/dL (0.7-1.2) H Estimat Glomerular Filtration Rate mL/min (>60) Glucose Level 79 mg/dL (74-106) Calcium Level 6.4 mg/dL (8.6-10.2) L Phosphorus Level 5.5 mg/dL (2.5-4.8) H Magnesium Level 1.6 mg/dL (1.7-2.5) L Total Bilirubin 14.6 mg/dL (0.0-1.2) H Direct Bilirubin 10.7 mg/dL (0.1-0.3) H Aspartate Amino Transf (AST/SGOT) 6673 U/L (5-40) H Alanine Aminotransferase (ALT/SGPT) 2126 U/L (3-41) H Alkaline Phosphatase 116 U/L (40-129) Total Protein 4.7 g/dL (6.6-8.7) L Albumin 2.4 g/dL (3.5-5.2) L Globulin 2.3 g/dL Albumin/Globulin Ratio 1.0 (1.0-2.7) IDALIA WALLS Mar 21, 2017 10:20
--- NOTE | 2017-03-21 11:45 | Consultation ---
DATE OF CONSULTATION: 03/20/2017 CARDIOLOGY CONSULTATION CONSULTING PHYSICIAN: Sukhjinder Infante M.D. REFERRING PHYSICIAN: Junior Melgar M.D. REASON FOR REFERRAL: Respiratory failure and tachycardia. History of Present Illness: This is an elderly gentleman who is known to me from one prior evaluation and hospitalization here at [facility] late last month or early this month. The patient has severe end-stage cardiomyopathy. He was at a convalescent facility and apparently was transferred from the convalescent facility to the acute hospital here at [facility] because of alteration in mental status. The patient himself is right now unable to provide meaningful history. He is intubated on mechanical ventilator. The support teacher run sheet indicates that the patient became altered in 15 minutes prior to the paramedics being called. The patient was given Glucagon by staff due to the blood sugar 43. The patient is non-ambulatory and was declining chest pain or shortness of breath, on 4 liters nasal cannula. No other complaints. Negative accessory muscle usage at the convalescent facility. He was brought to the emergency room and in the emergency room was seen by Dr. Huston where he was noted to be septic. Fluid resuscitation initiated for transient hypotension with worsened mentation, intubated, and blood pressure apparently improved after fluid antibiotics were given. Coagulopathy treatment with vitamin K was arranged. FFP transfusion was provided. Versed drip was started. The patient was treated further. Glucose dropped again and D5 was given. The patient was started on Levophed drip and subsequently admitted to the hospital. At the present time, he is quite tachycardic, on a mechanical ventilator and unable to provide meaningful history. Past Medical History: The patient's past medical history is extensive and is present in my dictation consultation from last month. When I reviewed his chart, he has a history of dilated cardiomyopathy and paroxysmal episodes of atrial fibrillation, status post ablation. He has a history of congestive heart , status post biventricular ICD with revision, epicardial lead placement, history of peptic ulcer disease, status post multiple fractures has history of gastroenteritis. He has severe cardiomyopathy with ejection fraction 10% on a recent evaluation, two mitral clips in anterior and posterior leaflets of the mitral valve, moderate to severe mitral regurgitation, and pulmonary hypertension in the 50s. IVC was dilated previously. He had ICD interrogation apparently in ventricular heart rate episode and the patient was atrial pacing 29% and ventricular pacing 95%. He is actually not being treated with ANALILIA inhibitors or ARBs due to high potassium and borderline blood pressure. He is allergic to digoxin and codeine according to himself and from the records. On my discussion with his primary smearer, Dr. Aquino, the patient cardiomyopathy, congestive heart failure, and really nothing else to be provided for him. At that time, we decided to discontinue mexiletine and the patient was started on amiodarone and he converted back to sinus, spontaneously he was started on amiodarone with loading to be continued as an outpatient. Nevertheless, he was subsequently discharged to convalescent facility at that time. Allergies: Digoxin, which caused toxicity and spironolactone caused gynecomastia. Social History: He used to smoke many years ago. He quit 30 years ago. Alcohol is none. Marijuana previously. Family History: His sister had cancer and cardiomyopathy. Mother is alive and aged 91, also has cardiomyopathy and obesity. REVIEW OF SYSTEMS: Unable to obtain. PHYSICAL EXAMINATION: General: Shows to be an elderly gentleman, on a mechanical ventilator, unresponsive, noncommunicative, on a Versed drip and on norepinephrine drip. NECK: Supple. No jugular venous distention. LUNGS: Appear to be clear to auscultation relatively. Cardiac: Irregularly irregular. Tachycardic. No RV lift, heaves, or thrills noted. ABDOMEN: Soft. EXTREMITIES: There is no edema. Neurologic: He is noncommunicative and not responsive, but of course sedated. Laboratory And Diagnostic Data: White count of 12.1, down from 18.9; hemoglobin 14.1; platelet count of 158,000; 86 polys; 3 lymphocytes; and 10 monos. Blood gases, pH is 7.4, pCO2 228, pO2 of 184, and bicarb of 17. Sodium is 134, potassium 4.3, chloride 89, bicarbonate 23, BUN of 78, and creatinine of 4.5. In direct comparison his creatinine was 1.5 at the time of discharge of last hospitalization and his BUN was 23 at the time of his last hospitalization here at [place]. His lactic acid level was 12.4 now decreased down to 8.8. He had a calcium of 7.3. He has got AST of 31, ALT of 11, and alkaline phosphatase of 129. His troponin was negative. His bilirubin was 10.9 and albumin of 2.9. Coagulation studies, INR was greater than 10 and PTT of 45. His urinalysis shows A+ urobilinogen and 1+ leukocyte esterase. Toxicology screen, basically salicylate, acetaminophen, and alcohol were negative. ASSESSMENT: 1. Septic shock. 2. Hepatitis. 3. Hypotension. 4. End-stage cardiomyopathy. 5. Chronic congestive heart failure. 6. Acute renal failure. 7. Atrial fibrillation with rapid ventricular response with paroxysmal episodes of atrial fibrillation. 8. End-stage renal cardiomyopathy. Plan: Dr. Melgar, this patient was seen in cardiac consultation. The patient is tachycardic at the present time. His norepinephrine is probably driving his tachycardia. He should be taken off amiodarone in light of the fact that he has abnormal liver function tests and amiodarone therapy that he was started on previously. His statins should be discontinued for the time being. Other non-needed medication should be discontinued. He has gotten some vitamin K from the emergency room. Supportive care with some fluid managing him for the time being. Anticoagulation will be on hold for the time being. His prognosis overall is quite poor and hospice may be appropriate care for him. Sukhjinder Infante M.D. DR: ANABELA JOB#: [id number] CC:
[2017-03-21] MEDS: Norepinephrine Bitartrate 8 MG in D5W 500ml 500 ML IV SCH ×2 (15:57→20:19)
--- NOTE | 2017-03-21 17:19 | Cardiology Progress Note ---
Assessment/Plan Assessment/Plan 1. Septic shock. 2. Hepatitis. 3. Hypotension. 4. End-stage cardiomyopathy. 5. Chronic congestive heart failure. 6. Acute renal failure. 7. Atrial fibrillation with rapid ventricular response with paroxysmal episodes of atrial fibrillation. 8. End-stage renal cardiomyopathy. 9. hyperbilirubinemia 10. bacteremia off amiod adn statin in light of liver function ab prognosis overall is poor hospice may be appropriate for nwo pressor vent support iv abx await family arrival from outside area critically ill at risk of dying bp quite low i will administer some ivf bolus to see if can improve bp pressors for now Subjective ROS Limited/Unobtainable: Yes Objective Last 24 Hour Vital Signs Date Time Temp Pulse Resp B/P (MAP) Pulse Ox O2 Delivery O2 Flow Rate FiO2 03/21/17 16:00 132 03/21/17 16:00 100 03/21/17 15:57 85/55 03/21/17 15:28 129 34 30 03/21/17 15:00 126 18 118/93 95 Mechanical Ventilator 100 03/21/17 14:30 120 18 114/83 96 Mechanical Ventilator 100 03/21/17 14:00 121 32 122/89 96 Mechanical Ventilator 100 03/21/17 13:30 124 32 86/42 96 Mechanical Ventilator 100 03/21/17 13:15 126 34 60 03/21/17 13:00 127 30 86/42 97 Mechanical Ventilator 100 03/21/17 12:30 124 32 86/42 92 Mechanical Ventilator 100 03/21/17 12:00 100 03/21/17 12:00 126 32 86/42 95 Mechanical Ventilator 100 03/21/17 12:00 120 03/21/17 11:30 124 34 86/42 89 Mechanical Ventilator 100 03/21/17 11:00 99.2 124 32 91/41 69 Mechanical Ventilator 100 03/21/17 10:45 124 32 86/42 65 Mechanical Ventilator 100 03/21/17 10:44 58 33 100 03/21/17 10:31 84/31 03/21/17 10:30 127 38 91/41 68 Mechanical Ventilator 100 03/21/17 10:15 126 39 84/31 72 Mechanical Ventilator 100 03/21/17 10:00 122 38 86/67 98 Mechanical Ventilator 30 03/21/17 09:45 128 40 68/40 98 Mechanical Ventilator 30 03/21/17 09:30 125 34 71/41 97 Mechanical Ventilator 30 03/21/17 09:25 119 35 30 03/21/17 09:15 127 35 61/51 100 Mechanical Ventilator 30 03/21/17 09:00 126 47 68/46 98 Mechanical Ventilator 30 03/21/17 08:45 127 31 71/51 98 Mechanical Ventilator 30 03/21/17 08:30 126 47 60/45 98 Mechanical Ventilator 30 03/21/17 08:15 124 42 83/59 98 Mechanical Ventilator 30 03/21/17 08:13 70/55 03/21/17 08:00 99.0 120 41 72/51 99 Mechanical Ventilator 30 03/21/17 08:00 122 03/21/17 08:00 30 03/21/17 07:45 123 34 70/55 98 Mechanical Ventilator 30 03/21/17 07:30 127 35 61/51 100 Mechanical Ventilator 30 03/21/17 07:15 128 34 75/60 100 Mechanical Ventilator 30 03/21/17 07:00 79/61 03/21/17 07:00 128 28 68/22 100 Mechanical Ventilator 40 03/21/17 06:48 123 33 30 03/21/17 06:45 134 28 79/61 100 Mechanical Ventilator 40 03/21/17 06:30 134 28 77/34 100 Mechanical Ventilator 40 03/21/17 06:15 130 33 72/36 100 Mechanical Ventilator 40 03/21/17 06:00 52/17 03/21/17 06:00 131 32 57/17 100 Mechanical Ventilator 40 03/21/17 05:45 142 30 76/32 100 Mechanical Ventilator 40 03/21/17 05:32 51/10 03/21/17 05:30 98.9 140 32 47/32 100 Mechanical Ventilator 40 03/21/17 05:15 142 30 51/10 100 Mechanical Ventilator 40 03/21/17 05:11 140 31 30 03/21/17 05:00 99.0 140 30 90/61 99 Mechanical Ventilator 40 03/21/17 05:00 90/61 03/21/17 04:45 140 30 60/41 99 Mechanical Ventilator 40 03/21/17 04:30 143 30 58/30 99 Mechanical Ventilator 40 03/21/17 04:15 142 30 80/65 99 Mechanical Ventilator 40 03/21/17 04:00 146 03/21/17 04:00 100.1 142 30 64/39 99 Mechanical Ventilator 40 03/21/17 04:00 30 03/21/17 04:00 68/42 03/21/17 03:45 142 30 64/39 99 Mechanical Ventilator 40 03/21/17 03:30 135 30 76/49 99 Mechanical Ventilator 40 03/21/17 03:15 138 30 74/47 99 Mechanical Ventilator 40 03/21/17 03:10 139 37 30 03/21/17 03:00 74/46 03/21/17 03:00 139 28 68/55 98 Mechanical Ventilator 40 03/21/17 02:48 87/53 03/21/17 02:45 139 28 76/49 98 Mechanical Ventilator 40 03/21/17 02:30 143 28 87/52 98 Mechanical Ventilator 40 03/21/17 02:15 142 28 81/38 98 Mechanical Ventilator 40 03/21/17 02:00 143 28 80/60 98 Mechanical Ventilator 40 03/21/17 02:00 41/03/21/17 01:45 150 28 41/24 98 Mechanical Ventilator 40 03/21/17 01:30 150 28 54/40 98 Mechanical Ventilator 40 03/21/17 01:15 152 28 74/60 98 Mechanical Ventilator 40 03/21/17 01:11 153 36 30 03/21/17 01:00 68/55 03/21/17 01:00 152 28 68/55 98 Mechanical Ventilator 40 03/21/17 00:45 151 28 56/22 98 Mechanical Ventilator 40 03/21/17 00:30 150 28 57/13 98 Mechanical Ventilator 40 03/21/17 00:19 64/41 03/21/17 00:15 147 28 81/64 98 Mechanical Ventilator 40 03/21/17 00:00 30 03/21/17 00:00 152 03/21/17 00:00 99.5 147 28 68/36 98 Mechanical Ventilator 40 03/20/17 23:45 147 28 79/64 98 Mechanical Ventilator 40 03/20/17 23:30 143 28 96/66 98 Mechanical Ventilator 40 03/20/17 23:15 149 32 74/59 98 Mechanical Ventilator 40 03/20/17 23:14 148 33 30 03/20/17 23:00 149 32 80/53 98 Mechanical Ventilator 40 03/20/17 23:00 80/56 03/20/17 22:45 144 32 80/56 98 Mechanical Ventilator 40 03/20/17 22:30 147 32 85/61 98 Mechanical Ventilator 40 03/20/17 22:15 149 28 92/66 99 Mechanical Ventilator 40 03/20/17 22:00 81/63 03/20/17 21:59 155 28 81/63 99 Mechanical Ventilator 40 03/20/17 21:45 149 28 69/45 99 Mechanical Ventilator 40 03/20/17 21:30 148 28 78/56 99 Mechanical Ventilator 40 03/20/17 21:17 157 29 30 03/20/17 21:15 147 28 70/45 99 Mechanical Ventilator 40 03/20/17 21:00 143 28 82/68 99 Mechanical Ventilator 40 03/20/17 21:00 82/68 03/20/17 20:45 143 28 83/61 99 Mechanical Ventilator 40 03/20/17 20:37 80/41 03/20/17 20:30 143 28 66/51 99 Mechanical Ventilator 40 03/20/17 20:15 143 28 81/62 99 Mechanical Ventilator 40 03/20/17 20:00 30 03/20/17 20:00 136 03/20/17 20:00 98.9 143 28 79/39 99 Mechanical Ventilator 40 03/20/17 19:45 143 28 79/39 99 Mechanical Ventilator 40 03/20/17 19:30 143 28 83/60 99 Mechanical Ventilator 40 03/20/17 19:15 143 28 78/62 99 Mechanical Ventilator 40 03/20/17 19:01 148 31 30 03/20/17 19:00 143 28 91/70 99 Mechanical Ventilator 40 03/20/17 18:45 143 28 81/59 99 Mechanical Ventilator 40 03/20/17 18:30 144 28 87/57 99 Mechanical Ventilator 40 03/20/17 18:15 144 28 89/68 99 Mechanical Ventilator 40 03/20/17 18:00 101/62 03/20/17 18:00 143 28 101/62 99 Mechanical Ventilator 40 03/20/17 17:30 139 28 86/42 99 Mechanical Ventilator 40 03/20/17 17:23 81/66 General Appearance: on vent Neck: supple Cardiovascular: tachycardia, irregularly irregular Respiratory/Chest: lungs clear, normal breath sounds Abdomen: normal bowel sounds, non tender, soft Extremities: no swelling Intake and Output 03/21/17 03/22/17 19:00 07:00 Intake Total 1165.0 ml Output Total 0 ml Balance 1165.0 ml Intake Oral 0 ml IV Total 1165.0 ml Output Urine Total 0 ml Laboratory Tests Test 03/20/17 18:00 03/20/17 21:30 03/21/17 04:50 Lactic Acid Level 8.80 mmol/L (0.66-2.22) H 4.80 mmol/L (0.66-2.22) H White Blood Count 10.8 K/UL (4.8-10.8) Red Blood Count 3.73 M/UL (4.70-6.10) L Hemoglobin 13.4 G/DL (14.2-18.0) L Hematocrit 39.7 % (42.0-52.0) L Mean Corpuscular Volume 107 FL (80-99) H Mean Corpuscular Hemoglobin 36.0 PG (27.0-31.0) H Mean Corpuscular Hemoglobin Concent 33.8 G/DL (32.0-36.0) Red Cell Distribution Width 15.7 % (11.6-14.8) H Platelet Count 112 K/UL (150-450) L Mean Platelet Volume 10.8 FL (6.5-10.1) H Neutrophils (%) (Auto) % (45.0-75.0) Lymphocytes (%) (Auto) % (20.0-45.0) Monocytes (%) (Auto) % (1.0-10.0) Eosinophils (%) (Auto) % (0.0-3.0) Basophils (%) (Auto) % (0.0-2.0) Differential Total Cells Counted 100 Neutrophils % (Manual) 69 % (45-75) Lymphocytes % (Manual) 7 % (20-45) L Monocytes % (Manual) 7 % (1-10) Eosinophils % (Manual) 0 % (0-3) Basophils % (Manual) 0 % (0-2) Metamyelocytes % 1 % (0-0) H Band Neutrophils 16 % (0-8) H Platelet Estimate Decreased L Platelet Morphology Normal Anisocytosis 1+ Macrocytosis 1+ Sutter Cells 1+ Sodium Level 128 mEQ/L (135-145) L Potassium Level 5.5 mEQ/L (3.4-4.9) H Chloride Level 90 mEQ/L (98-107) L Carbon Dioxide Level 16 mEQ/L (20-30) L Anion Gap 22 (5-15) H Blood Urea Nitrogen 83 mg/dL (7-23) H Creatinine 5.7 mg/dL (0.7-1.2) H Estimat Glomerular Filtration Rate mL/min (>60) Glucose Level 79 mg/dL (74-106) Calcium Level 6.4 mg/dL (8.6-10.2) L Phosphorus Level 5.5 mg/dL (2.5-4.8) H Magnesium Level 1.6 mg/dL (1.7-2.5) L Total Bilirubin 14.6 mg/dL (0.0-1.2) H Direct Bilirubin 10.7 mg/dL (0.1-0.3) H Aspartate Amino Transf (AST/SGOT) 6673 U/L (5-40) H Alanine Aminotransferase (ALT/SGPT) 2126 U/L (3-41) H Alkaline Phosphatase 116 U/L (40-129) Total Protein 4.7 g/dL (6.6-8.7) L Albumin 2.4 g/dL (3.5-5.2) L Globulin 2.3 g/dL Albumin/Globulin Ratio 1.0 (1.0-2.7) Microbiology Date/Time Source Procedure Growth Status 03/19/17 23:20 Blood Blood Culture - Preliminary Resulted 03/19/17 23:05 Blood Blood Culture - Preliminary Resulted 03/19/17 22:17 Urine,Clean Catch Urine Culture - Preliminary NO GROWTH AFTER 24 HOURS Resulted MELANIE RIVAS Mar 21, 2017 17:19
[2017-03-21] MEDS ORDERED: NS 250 ML IVPB ONE (18:45)
--- NOTE | 2017-03-21 18:48 | Consultation ---
Consult Note Consult Note [id number] SAHARA VILLEGAS M.D. Mar 21, 2017 18:48
[2017-03-21] MEDS ORDERED: Levophed 4mg/4mL Inj IV ONE (20:10)
[2017-03-21] MEDS: Dyna-Hex 2% Top Sol 8oz TOPIC SCH (20:22)
[2017-03-22] VITALS (9 sets, daily range): BP systolic 0–86; BP diastolic 0–66
[2017-03-22] MEDS: Norepinephrine Bitartrate 8 MG in D5W 500ml 500 ML IV SCH (00:41)
[2017-03-22] MEDS ORDERED: D5NS 1000ml IV ONE (03:39)
[2017-03-22] MEDS ORDERED: Tubing IV Secondary IV ONE (03:39)
[2017-03-22] MEDS ORDERED: D5W 550ml IV ONE (03:39)
--- NOTE | 2017-03-22 04:40 | Emergency Room Report ---
History of Present Illness General Chief Complaint: Altered Level of Consciousness Source: EMS Present Illness Allergies: Coded Allergies: DIGOXIN (Unverified Allergy, Intermediate, KIDNEY DAMAGE, 09/14/14) CODEINE (Verified Allergy, Unknown, ITCHING, 05/15/12) Nursing Documentation-PMH Hx Cardiac Problems: Yes - A-fib,Hyperlipidemia, Rheumatic tricuspid insufficiency,hyperkalemia Hx Hypertension: Yes Hx Pacemaker: Yes - RT Hx Asthma: No Hx COPD: No Hx Diabetes: No Hx Cancer: No Hx Gastrointestinal Problems: Yes - HERNIA (inguinal) Hx Dialysis: No - RENAL INSUFFIENCY Hx Neurological Problems: No 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 Medical Decision Making Diagnostic Impression: Primary Impression: Severe sepsis Additional Impressions: Coagulopathy Hypoglycemia Renal failure Liver failure Last Vital Signs Date Time Temp Pulse Resp B/P (MAP) Pulse Ox O2 Delivery O2 Flow Rate FiO2 03/22/17 03:25 105 28 50 03/22/17 02:30 78/51 90 Mechanical Ventilator 03/22/17 00:00 99.0 03/20/17 12:00 Disposition: ADMITTED INPATIENT Condition: Critical Referrals: IDALIA MELGAR (PCP) RADHA FLEMING M.D. Mar 22, 2017 04:40
[2017-03-22 07:57] LABS: OTHERS PATHOLOGIST COMMENT
--- NOTE | 2017-03-24 09:15 | Consultation ---
DATE OF CONSULTATION: ADDENDUM ASSESSMENT: 1. Sepsis. 2. Leukocytosis. 3. Rule out aspiration pneumonia. 4. Transaminitis, most likely due to septic shock, need to rule out also acute viral hepatitis (A, B, and C). 5. Acute renal failure. 6. Septic shock. 7. Respiratory failure, on ventilator. 8. hyperlipidemia. 9. History of pacemaker placement. PLAN: 1. We will continue the patient on IV vancomycin and Zosyn. 2. Monitor CBC. 3. Monitor BMP. 4. Monitor cultures (blood, urine, and sputum). 5. Monitor liver function test. 6. We will send hepatitis serology and hepatitis C PCR. 7. The patient overall appears to be poor prognosis at this time. 8. Management of vent due to respiratory failure as per pulmonary team. Thank you, Dr. Melgar, for allowing me to participate in the care of this patient. I will follow the patient with you during this hospitalization. Murtaza Rosario M.D. DR: WILLIAM JOB#: [id number] CC:
--- NOTE | 2017-03-24 09:15 | Consultation ---
DATE OF CONSULTATION: 03/21/2017 INFECTIOUS DISEASES CONSULTATION CONSULTING PHYSICIAN: Murtaza Rosario M.D. REFERRING PHYSICIAN: Junior Melgar M.D. REASON FOR CONSULTATION: Evaluation of the patient for sepsis and antibiotic management. HISTORY OF PRESENT ILLNESS: The patient is a 76-year-old male with multiple medical problems, who was brought to this medical center due to altered level of consciousness. The patient was found to have respiratory failure, had to be intubated, and was transferred to the ICU, was started on pressors. Infectious Disease consultation has been requested for evaluation of the patient for sepsis and antibiotic management. PAST MEDICAL HISTORY: 1. Atrial fibrillation. 2. Hyperlipidemia. 3. Coronary artery disease. 4. History of pacemaker placement. 5. Hypertension. 6. History of renal insufficiency. 7. Depression. 8. Anxiety. MEDICATIONS: Vancomycin, Zosyn. ALLERGIES: Codeine, digoxin. FAMILY HISTORY: Unobtainable. SOCIAL HISTORY: The patient is living in a detention. PHYSICAL EXAMINATION: Vital Signs: Temperature 98.9 degrees, pulse 60, respirations 18, and T-max 100.1. HEENT: Mild pale conjunctivae. NECK: No lymphadenopathy. CHEST: Coarse breathing sounds. HEART: S1 and S2. ABDOMEN: Soft. EXTREMITIES: No cyanosis. NEUROLOGIC: Obtunded. LABORATORY DATA: White blood cells at the time of admission 18, today is 10.8, hemoglobin 13, and platelets 112,000. UA unremarkable. BUN 86, creatinine 5.7. AST over 6000, ALT over 2000, and alkaline phosphatase 116. Total bilirubin 14. Blood culture is growing gram-positive rods, 2 out of 2. Urine culture is pending. Chest x-ray, mild interstitial congestion versus infiltrate. ASSESSMENT: 1. Sepsis. 2. Leukocytosis. 3. Rule out aspiration pneumonia. 4. Transaminitis, most likely due to septic shock, need to rule out also acute viral hepatitis (A, B, and C). 5. Acute renal failure. 6. Septic shock. 7. Respiratory failure, on ventilator. 8. A-fib. 9. Hyperlipidemia. 10. History of pacemaker placement. PLAN: 1. We will continue the patient on IV vancomycin and Zosyn. 2. Monitor CBC. 3. Monitor BMP. 4. Monitor cultures (blood, urine, and sputum). 5. Monitor liver function test. 6. We will send hepatitis serology and hepatitis C PCR. 7. The patient overall appears to be poor prognosis at this time. 8. Management of vent due to respiratory failure as per pulmonary team. Thank you, Dr. Melgar, for allowing me to participate in the care of this patient. I will follow the patient with you during this hospitalization. Murtaza Rosario M.D. DR: ELLIOTT/PM/V JOB#: [id number] CC: MARTHA
--- NOTE | 2017-03-24 13:44 | Discharge Summary ---
Discharge Summary Hospital Course Date of Admission Mar 19, 2017 at 22:23 Date of Discharge Mar 22, 2017 at 03:40 Admitting Diagnosis ALOC/hypoglycemia/liver failure HPI Fady Raya is a 76 year old male who was admitted on Mar 19, 2017 at 22:23 for Altered Level Of Consciousness, Hypoglycemia Hospital Course summary #[id number] Discharge Discharge Disposition Patient Discharge Diagnoses: Discharge Instructions Discharge Instructions Special Instructions I have been assigned to complete a D/C Summary on this account. I was not involved in the patient management Marco Richards)Brenda NP Mar 24, 2017 13:44
--- NOTE | 2017-03-25 07:45 | Discharge Summary 2 SIG ---
SUMMARY DATE OF ADMISSION: 03/19/2017 DATE OF EXPIRATION: 03/22/2017 Reason for admission: 76-year-old male with past medical history of congestive heart failure, end-stage heart disease, severe mitral regurgitation, status post two MitraClip, paroxysmal atrial fibrillation, status post ablation, nonischemic cardiomyopathy, severe pulmonary hypertension, protein-calorie malnutrition, depression, anxiety, and chronic kidney disease was presented with altered mentation. Blood sugar was 49 at the field. Glucagon was given. When the fitting supervisor arrived, blood sugar was up to 79. In ED, the patient appeared to be tachycardic and he exhibited icteric sclerae. He was short of breath and was unable to provide any history. The patient required placement of 100% nonrebreathing mask. The patient's respiratory rate was 14. EKG demonstrated atrial fibrillation with rapid ventricular response., heart rate - 128. Chest x-ray revealed cardiomegaly and possibly bilateral infiltrates. WBC -18. Lactic acid -12.4. INR over 10. Pro BNP over 70,000. BUN -77, creatinine -4.7, AST -1437, and ALT- 679. Troponin was negative. Ammonia - 66. The patient presented with altered mentation, evidence of liver and renal failure , hypotension, tachycardia, acute respiratory insufficiency. Central line was placed in anticipation for possible pressors. The patient was orally intubated. Septic workup initiated. The patient was started on fluid resuscitation. Blood pressure did not improve with fluid challenge, and the patient was started on Levophed. The patient was transferred to ICU for further management. ADMITTING DIAGNOSES: 1. Acute hypoxemic respiratory failure, requiring intubation. 2. Severe sepsis. 3. Shock secondary to sepsis. 4. Hypoglycemia. 5. Hepatitis/liver failure. 6. Renal failure. 7. Coagulopathy. 8. End-stage cardiomyopathy with ejection fraction of 10%. 9. Possible aspiration pneumonia. 10. Atrial fibrillation with rapid ventricular response. Hospital Course: The patient was admitted to ICU. Ventilator support and pulmonary care provided as needed. The patient was on empiric antibiotics. ID closely followed. Blood culture revealed gram-positive rods. Urine culture was negative. Cardiology closely followed the patient along with ID specialist. Per gimp tacker, the patient was off amiodarone and statin due to the elevated LFT. He also recommended to discontinue all other unnecessarily medications. Vitamin K was given in the emergency department. Bench Molder Apprentice recommended supportive care with fluids and keep anticoagulation on hold. Prognosis overall was quite poor and hospice care was suggested. Repeated INR after vitamin K still showed INR above 10. Toxic screen for salicylate, alcohol, and Tylenol was negative. Repeated lactic acid consistently elevated, though trending down from initial 12.4 down to 9.5, the next day -8.8, and later on -4.8. Renal parameters were worsening. Creatinine up to 5.7. AST and ALT progressively worsen as well from initial AST 1487 in two days up to 6673 and ALT from initial 679 in two days up to 2126. Infectious Disease doctor suspected possible healthcare-associated pneumonia. In addition hepatitis serology was ordered. Primary doctor discussed the patient's prognosis with the patient's daughter. Code status was subsequently changed to DNR/DNI status on 03/20/2017. On 03/21/2017, leukocytosis resolved, however renal and liver function worsened The patient was on ventilator. Pulmonary toilet provided along with ventilator support. Pressors were stopped on 03/21/2017 as per family. On 03/22/2017, ED doctor was called to pronounce the patient. The patient was apneic, asystole on monitor. Pupils fixed and dilated. No corneal or gag reflex. No palpable carotid pulses. The patient was pronounced at 3:40 a.m. on 2016. Cause of : cardiopulmonary arrest. FINAL DIAGNOSES: 1. Acute hypoxemic respiratory failure, requiring intubation. 2. Severe sepsis. 3. Septic shock secondary to sepsis. 4. Bacteremia with gram-positive rods. 5. Acute hepatitis/liver failure. 6. Acute renal failure. 7. Coagulopathy. 8. Atrial fibrillation with rapid ventricular response. 9. Possible aspiration pneumonia. 10. End-stage renal cardiomyopathy. 11. End-stage cardiomyopathy with ejection fraction 10%. 12. Hypoglycemia. Junior Melgar M.D. I have been assigned to dictate discharge summary on this account and I was not involved in the patient's management. Brenda Lara N.P. (Vanchtein) DR: Namita JOB#: [id number] CC: MARTHA
== END 2017-03-22 03:40 | disposition expired | DRG 871 ==
LOC: EDBD 20:35 → EMR 20:59 → 2E 22:23 → ICU 22:23 → UNDOADMIN 22:23 → EDBEDREQ 22:27 → EDBEDREQSVC 22:39
PROC: 5A1945Z Respiratory Ventilation, 24-96 Consecutive Hours (ICD-10-PCS; principal; 2017-03-19)
PROC: 06HM33Z Insertion of Infusion Device into Right Femoral Vein, Percutaneous Approach (ICD-10-PCS; principal; 2017-03-19)
PROC: 0BH17EZ Insertion of Endotracheal Airway into Trachea, Via Natural or Artificial Opening (ICD-10-PCS; principal; 2017-03-19)
PROC: 30233K1 Transfusion of Nonautologous Frozen Plasma into Peripheral Vein, Percutaneous Approach (ICD-10-PCS; 2017-03-20)
DX: A41.9 Sepsis, unspecified organism (principal); R65.21 Severe sepsis with septic shock; J96.01 Acute respiratory failure with hypoxia; K72.00 Acute and subacute hepatic failure without coma; J69.0 Pneumonitis due to inhalation of food and vomit; D68.9 Coagulation defect, unspecified; N17.9 Acute kidney failure, unspecified; I42.8 Other cardiomyopathies; N18.6 End stage renal disease; I50.23 Acute on chronic systolic (congestive) heart failure; I13.2 Hypertensive heart and chronic kidney disease with heart failure and with stage 5 chronic kidney disease, or end stage renal disease; Z88.6 Allergy status to analgesic agent; Z88.8 Allergy status to other drugs, medicaments and biological substances; I27.2 Other secondary pulmonary hypertension; E16.2 Hypoglycemia, unspecified; I48.91 Unspecified atrial fibrillation
CPT/HCPCS: 31500; 36415; 36600; 71010; 80053; 80329; 81003; 82140; 82248; 82550; 82803; 82962; 83605; 83735; 83880; 84100; 84443; 84484; 85007; 85025; 85610; 85730; 86900; 86901; 86927; 87040; 87081; 87086; 93005; 94002; 94003; 94664; 99285; J2250; J3430